=== PATIENT | male | born 1990 | race Caucasian/White ===

== ENCOUNTER 2016-10-03 20:43 | Emergency (ER) | payer OTHER ==
[2016-10-03] MEDS ORDERED: NS 0.9% 1000 ML* 3,000 ML IV ONE (21:57)
[2016-10-03 22:06] LABS: Hematocrit 47 % (42-52); Mean Corpuscular HGB Conc 34 g/dl (31-36); Mean Corpuscular Hemoglobin 31 pg (27-31); Mean Corpuscular Volume 91 fL (80-94); Mean Platelet Volume 10 um3 (7.4-10.4); Red Blood Count 5.23 10^6/ul (4.0-5.4); Red Cell Distribution Width 14 % (10.5-15); White Blood Count 11.7 10^3/ul (3.5-10.8)
[2016-10-03 22:17] LABS: Acetaminophen < 15 mcg/mL; Alcohol < 10 mg/dL (<10)
[2016-10-03 22:19] LABS: ALT 11 U/L (7-52); AST 13 U/L (13-39); Albumin 4.2 g/dL (3.2-5.2); Alkaline Phosphatase 51 U/L (34-104); Anion Gap 9 mmol/L (2-11); BUN/Creatinine Ratio 15.7 (8-20); Blood Urea Nitrogen 16 mg/dL (6-24); C Reactive Protein 1.45 mg/L (< 5.00); CO2 Carbon Dioxide 25 mmol/L (22-32); Calcium 9.1 mg/dL (8.6-10.3); Chloride 105 mmol/L (101-111); Creatine Kinase 93 U/L (10-223); EGFR African American 113.5 (>60); EGFR Non-African American 88.3 (>60); Globulin 2.7 g/dL (2-4); Glucose 99 mg/dL (70-100); Lipase 26 U/L (11.0-82.0); Potassium 3.8 mmol/L (3.5-5.0); Sodium 139 mmol/L (133-145); Total Protein 6.9 g/dL (6.4-8.9)
[2016-10-03 22:21] LABS: Troponin I 0.01 ng/mL (<0.04)
[2016-10-03 22:28] LABS: TSH (Thyroid Stimulating Horm) 0.77 mcIU/mL (0.34-5.60)
--- NOTE | 2016-10-03 22:29 | RAD ---
Indication: LEFT arm and leg weakness. Intermittent LEFT chest pain. Comparison: February 14, 2014 MRI and February 03, 2014 CT. Technique: Noncontrast CT vertex of skull through foramen magnum. Report: The sulci, ventricles, and basal cisterns are normal for age. Lowe matter white matter differentiation is preserved without evidence for edema. No intra or extra axial hemorrhage, mass, or fluid collection detected. Unremarkable orbital contents. Unremarkable calvarium and skull base. Unremarkable scalp. The visualized paranasal sinuses and mastoid air spaces are clear. IMPRESSION: Negative unenhanced head CT.
--- NOTE | 2016-10-03 22:31 | RAD ---
Indication: Intermittent LEFT chest pain. Comparison: April 12, 2016 Technique: Sitting AP chest at 2217 hours Report: Clear lungs and pleural spaces. Negative for pneumothorax. The heart, pulmonary vasculature, and mediastinal contours are unremarkable. Unremarkable osseous structures and soft tissue contours. IMPRESSION: No evidence for acute intrathoracic disease.
[2016-10-03 22:40] LABS: Urine Bilirubin Negative (Negative); Urine Glucose Negative (Negative); Urine Nitrite Negative (Negative)
--- NOTE | 2016-10-03 23:21 | ED ---
I, Oh,Sosolitario, scribed for Gareth Ku MD on 10/03/16 at 2145 . HPI Chest Pain - HPI Summary HPI Summary: This 26 y/o male presents to ED via [facility] ambulance with chief complaint of acute, intermittent CP at 1500 PM today. CP is rated 10/10 at its worst, currently rated 5/10. It is located at left anterior radiating to back, and still persist intermittently. Pt was stopping by [employer] at the time of onset. Pt also reports mild nausea, LUE pain, "feeling really tired and dazed", testicular pain, and LLE numbness/parasthesia after the CP episode. Positive cough. Pt is current smoker. Pt is not currently on any medication. Sitting up and exertion make CP worse. Pt reports increased stressor at work. PMHx includes asthma. FHx is positive for cardiac dz to father. - History of Current Complaint Chief Complaint: EDChestPainROMI Time Seen by Provider: 10/03/16 21:26 Hx Obtained From: Patient Timing: Intermittent Pain Intensity: 8 Pain Scale Used: 0-10 Numeric Chest Pain Location: Left Anterior Chest Pain Radiates: Yes Chest Pain Radiates To:: Back Character: Dull/Aching Aggravating Factor(s): Nothing Alleviating Factor(s): Spontaneous Resolution Associated Signs and Symptoms: Positive: Chest Pain, Weakness - general, Lightheadedness, Cough. Negative: Fever, Chills - Allergy/Home Medications Allergies/Adverse Reactions: Allergies Allergy/AdvReac Type Severity Reaction Status Date / Time No Known Allergies Allergy Verified 04/12/16 12:34 PMH/Surg Hx/FS Hx/Imm Hx Cardiovascular History: Denies: Hx Pacemaker/ICD Respiratory History: Reports: Hx Asthma Sensory History: Denies: Hx Hearing Aid Psychiatric History: Reports: Hx Inpatient Treatment, Hx Community Mental Health Tx, Hx Schizophrenia, Hx of Violent Episodes Against Others, Hx Substance Abuse, Other Psychiatric Issues/Disorders - h/o Autism Spectrum d/o Denies: Hx Eating Disorder, Hx Panic Disorder - Cancer History Hx Chemotherapy: No Hx Radiation Therapy: No Hx Palliative Cancer Treatment: No Infectious Disease History: No Infectious Disease History: Denies: History Other Infectious Disease, Traveled Outside the [place] in Last 30 Days - Family History Known Family History: Positive: Cardiac Disease - positive to father, Hypertension, Diabetes, Other - unspecified CA. - Social History Alcohol Use: Occasionally Hx Substance Use: Yes Substance Use Type: Reports: Excessive Caffeine Substance Use Comment - Amount & Last Used: Alot of Monster drink Hx Tobacco Use: Yes Smoking Status (MU): Heavy Every Day Tobacco Smoker Type: Cigarettes, Cigars Amount Used/How Often: 1 PPD Length of Time of Smoking/Using Tobacco: 8 years Have You Smoked in the Last Year: Yes Review of Systems Negative: Fever Positive: Chest Pain Positive: Cough Positive: Nausea. Negative: Vomiting Positive: other - testicular pain Positive: Weakness - general Negative: Anxious, Depressed All Other Systems Reviewed And Are Negative: Yes Physical Exam Triage Information Reviewed: Yes Vital Signs On Initial Exam: Initial Vitals Temp Pulse Resp BP Pulse Ox 98.9 F 82 15 133/82 95 10/03/16 20:51 10/03/16 20:51 10/03/16 20:51 10/03/16 20:51 10/03/16 20:51 Vital Signs Reviewed: Yes Appearance: Positive: Well-Appearing, No Pain Distress Skin: Positive: Warm, Skin Color Reflects Adequate Perfusion, Dry Eyes: Positive: EOMI, TUSHAR, Other: - rarely opens his eyes Neck: Positive: Supple, Nontender Respiratory/Lung Sounds: Positive: Breath Sounds Present Cardiovascular: Positive: RRR, Pulses are Symmetrical in both Upper and Lower Extremities Abdomen Description: Positive: Nontender, No Organomegaly Bowel Sounds: Positive: Present Musculoskeletal: Positive: Strength/ROM Intact Neurological: Positive: Sensory/Motor Intact, Alert, Oriented to Person Place, Time, Speech Normal. Negative: Focal Deficit @, Slurred Speech - Mchenry Coma Scale Coma Scale Total: 15 Diagnostics - Vital Signs Vital Signs Temp Pulse Resp BP Pulse Ox 10/03/16 21:04 70 13 95 10/03/16 20:51 98.9 F 82 15 133/82 95 - Laboratory Lab Results: Lab Results 10/03/16 10/03/16 10/03/16 Range/Units 21:26 21:26 21:26 WBC 11.7 H (3.5-10.8) 10^3/ul RBC 5.23 (4.0-5.4) 10^6/ul Hgb 16.0 (14.0-18.0) g/dl Hct 47 (42-52) % MCV 91 (80-94) fL MCH 31 (27-31) pg MCHC 34 (31-36) g/dl RDW 14 (10.5-15) % Plt Count 175 (150-450) 10^3/ul MPV 10 (7.4-10.4) um3 Neut % (Auto) 70.6 (38-83) % Lymph % (Auto) 24.2 L (25-47) % Lyman % (Auto) 4.0 (1-9) % Eos % (Auto) 0.9 (0-6) % Baso % (Auto) 0.3 (0-2) % Absolute Neuts (auto) 8.3 H (1.5-7.7) 10^3/ul Absolute Lymphs (auto) 2.8 (1.0-4.8) 10^3/ul Absolute Monos (auto) 0.5 (0-0.8) 10^3/ul Absolute Eos (auto) 0.1 (0-0.6) 10^3/ul Absolute Basos (auto) 0 (0-0.2) 10^3/ul Absolute Nucleated RBC 0 10^3/ul Nucleated RBC % 0 INR (Anticoag Therapy) 1.04 (0.89-1.11) APTT 32.5 (26.0-36.3) seconds D-Dimer, Quantitative < 200 (Less Than 230) ng/mL Sodium 139 (133-145) mmol/L Potassium 3.8 (3.5-5.0) mmol/L Chloride 105 (101-111) mmol/L Carbon Dioxide 25 (22-32) mmol/L Anion Gap 9 (2-11) mmol/L BUN 16 (6-24) mg/dL Creatinine 1.02 (0.67-1.17) mg/dL Est GFR ( Amer) 113.5 (>60) Est GFR (Non-Af Amer) 88.3 (>60) BUN/Creatinine Ratio 15.7 (8-20) Glucose 99 (70-100) mg/dL Lactic Acid (0.5-2.0) mmol/L Calcium 9.1 (8.6-10.3) mg/dL Magnesium 2.0 (1.9-2.7) mg/dL Total Bilirubin 0.70 (0.2-1.0) mg/dL AST 13 (13-39) U/L ALT 11 (7-52) U/L Alkaline Phosphatase 51 (34-104) U/L Total Creatine Kinase 93 (10-223) U/L CK-MB (CK-2) 2.7 (0.6-6.3) ng/mL Troponin I 0.01 (<0.04) ng/mL C-Reactive Protein 1.45 (< 5.00) mg/L Total Protein 6.9 (6.4-8.9) g/dL Albumin 4.2 (3.2-5.2) g/dL Globulin 2.7 (2-4) g/dL Albumin/Globulin Ratio 1.6 (1-3) Lipase 26 (11.0-82.0) U/L TSH 0.77 (0.34-5.60) mcIU/mL Urine Color Urine Appearance Urine pH (5-9) Ur Specific Hoople (1.010-1.030) Urine Protein (Negative) Urine Ketones (Negative) Urine Blood (Negative) Urine Nitrate (Negative) Urine Bilirubin (Negative) Urine Urobilinogen (Negative) Ur Leukocyte Esterase (Negative) Urine Glucose (Negative) Acetaminophen < 15 mcg/mL Serum Alcohol < 10 (<10) mg/dL 10/03/16 10/03/16 Range/Units 21:26 22:20 WBC (3.5-10.8) 10^3/ul RBC (4.0-5.4) 10^6/ul Hgb (14.0-18.0) g/dl Hct (42-52) % MCV (80-94) fL MCH (27-31) pg MCHC (31-36) g/dl RDW (10.5-15) % Plt Count (150-450) 10^3/ul MPV (7.4-10.4) um3 Neut % (Auto) (38-83) % Lymph % (Auto) (25-47) % Lyman % (Auto) (1-9) % Eos % (Auto) (0-6) % Baso % (Auto) (0-2) % Absolute Neuts (auto) (1.5-7.7) 10^3/ul Absolute Lymphs (auto) (1.0-4.8) 10^3/ul Absolute Monos (auto) (0-0.8) 10^3/ul Absolute Eos (auto) (0-0.6) 10^3/ul Absolute Basos (auto) (0-0.2) 10^3/ul Absolute Nucleated RBC 10^3/ul Nucleated RBC % INR (Anticoag Therapy) (0.89-1.11) APTT (26.0-36.3) seconds D-Dimer, Quantitative (Less Than 230) ng/mL Sodium (133-145) mmol/L Potassium (3.5-5.0) mmol/L Chloride (101-111) mmol/L Carbon Dioxide (22-32) mmol/L Anion Gap (2-11) mmol/L BUN (6-24) mg/dL Creatinine (0.67-1.17) mg/dL Est GFR ( Amer) (>60) Est GFR (Non-Af Amer) (>60) BUN/Creatinine Ratio (8-20) Glucose (70-100) mg/dL Lactic Acid 0.9 (0.5-2.0) mmol/L Calcium (8.6-10.3) mg/dL Magnesium (1.9-2.7) mg/dL Total Bilirubin (0.2-1.0) mg/dL AST (13-39) U/L ALT (7-52) U/L Alkaline Phosphatase (34-104) U/L Total Creatine Kinase (10-223) U/L CK-MB (CK-2) (0.6-6.3) ng/mL Troponin I (<0.04) ng/mL C-Reactive Protein (< 5.00) mg/L Total Protein (6.4-8.9) g/dL Albumin (3.2-5.2) g/dL Globulin (2-4) g/dL Albumin/Globulin Ratio (1-3) Lipase (11.0-82.0) U/L TSH (0.34-5.60) mcIU/mL Urine Color Yellow Urine Appearance Clear Urine pH 8.0 (5-9) Ur Specific Hoople 1.010 (1.010-1.030) Urine Protein Negative (Negative) Urine Ketones Negative (Negative) Urine Blood Negative (Negative) Urine Nitrate Negative (Negative) Urine Bilirubin Negative (Negative) Urine Urobilinogen Negative (Negative) Ur Leukocyte Esterase Negative (Negative) Urine Glucose Negative (Negative) Acetaminophen mcg/mL Serum Alcohol (<10) mg/dL Result Diagrams: 10/03/16 21:26 10/03/16 21:26 Lab Statement: Any lab studies that have been ordered have been reviewed, and results considered in the medical decision making process. - Radiology CXR Xray Interpretation: No Acute Changes Radiology Interpretation Completed By: Radiologist - CT Brain CT Interpretation: No Acute Changes CT Interpretation Completed By: Radiologist - EKG 2106 Cardiac Rate: NL - 76 bpm EKG Rhythm: Sinus Rhythm Ectopy: None EKG Interpretation: Early repolarization Re-Evaluation - Re-Evaluation First Eval Re-Evaluation Time: 23:06 Comment: MD in room to update pt on CT brain, CXR, and bloodwork. Plan of care involving discharge and outpatient f/u is discussed, and pt is agreeable. Chest Pain Course/Dx - Course Assessment/Plan: IMROVED IN ED. DISCUSSED RESULTS WITH PATIENT. HE WILL F/U WITH HIS PMD AND RETURN TO ED IF WORSE. DISCHARGE HOME STABLE. - Diagnoses Provider Diagnoses: Chest pain, Paresthesia, Extremity pain Discharge - Discharge Plan Condition: Stable Disposition: HOME Patient Education Materials: Chest Pain (ED) Referrals: No Primary Care Phys,NOPCP [Primary Care Provider] - Additional Instructions: FOLLOW UP WITH YOUR DOCTOR FOR YOUR CHEST AND LEFT ARM AND LEG PAIN AND NUMBNESS. RETURN TO THE EMERGENCY DEPARTMENT FOR ANY WORSENING OF YOUR CONDITION; CHEST PAIN, WEAKNESS, NUMBNESS, YOU FEEL LIKE YOU ARE GOING TO PASS OUT OR QUESTIONS OR CONCERNS. The documentation as recorded by the Rupesh bruno Soohyun accurately reflects the service I personally performed and the decisions made by me, Gareth Ku MD.
[2016-10-03 23:39] VITALS: BP 114/84
== END 2016-10-03 23:39 | disposition home or self-care (01) ==
LOC: ED 20:43
DX: R20.9 Unspecified disturbances of skin sensation (principal); R07.9 Chest pain, unspecified; R53.1 Weakness; R42 Dizziness and giddiness; F17.210 Nicotine dependence, cigarettes, uncomplicated
CPT/HCPCS: 36415; 70450; 71010; 80053; 80320; 80329; 81003; 82550; 82553; 83605; 83690; 83735; 84443; 84484; 85025; 85379; 85610; 85730; 86140; 93005; 99282; G0480

== ENCOUNTER 2016-10-04 15:37 | Emergency (ER) | payer OTHER ==
[2016-10-04 15:43] VITALS: BP 130/75
[2016-10-04] MEDS ORDERED: Ketorolac INJ* 60 MG/2 ML VIAL IM ONE (16:43)
--- NOTE | 2016-10-04 16:54 | ED ---
Back Pain - HPI Summary HPI Summary: Patient presents with persistent left back and left arm pain for weeks that he was seen in this ED for last night. No acute findings were noted at last nights visit. He says his pain persists and he was able to go to work today. He denies known trauma or falls, and has not lifted anything heavy. He slept 12 hours last night and his pain did not awaken him. He denies N/T in the extremity but describes pain in the arm "that is deep inside". No prior neck or back injuries. He is able to move the arm. No WINKLER, fever, neck stiffness or vision changes. No incontinence of urine or stool. Patient was seen in this ED in 2015 for similar issues and has not followed up with a PCP since then. - History of Current Complaint Chief Complaint: EDBackInjuryPain Stated Complaint: BODY ACHES,NAUSEA Hx Obtained From: Patient Onset/Duration: Gradual Onset, Lasting Weeks, Still Present Onset/Duration: Atraumatic, Still Present Timing: Constant Back Pain Location: Is Discrete @ - left mid-back and rib, Radiates To - left arm Severity Initially: Moderate Severity Currently: Severe Pain Intensity: 9 Character: Dull, Aching Aggravating Symptom(s): Nothing Alleviating Symptom(s): Nothing Associated Signs And Symptoms: Negative: Weakness, Numbness, Tingling - Allergies/Home Medications Allergies/Adverse Reactions: Allergies Allergy/AdvReac Type Severity Reaction Status Date / Time Bee Venom Allergy Anaphylatic Verified 10/04/16 15:39 Shock PMH/Surg Hx/FS Hx/Imm Hx Cardiovascular History: Denies: Hx Pacemaker/ICD Respiratory History: Reports: Hx Asthma Sensory History: Denies: Hx Hearing Aid Psychiatric History: Reports: Hx Inpatient Treatment, Hx Community Mental Health Tx, Hx Schizophrenia, Hx of Violent Episodes Against Others, Hx Substance Abuse, Other Psychiatric Issues/Disorders - h/o Autism Spectrum d/o Denies: Hx Eating Disorder, Hx Panic Disorder - Cancer History Hx Chemotherapy: No Hx Radiation Therapy: No Hx Palliative Cancer Treatment: No Infectious Disease History: No Infectious Disease History: Denies: History Other Infectious Disease, Traveled Outside the [place] in Last 30 Days - Family History Known Family History: Positive: Cardiac Disease - positive to father, Hypertension, Diabetes, Other - unspecified [place]. - Social History Occupation: Employed Full-time Lives: With Family Alcohol Use: Occasionally Hx Substance Use: Yes Substance Use Type: Reports: Excessive Caffeine Substance Use Comment - Amount & Last Used: Alot of Monster drink Hx Tobacco Use: Yes Smoking Status (MU): Heavy Every Day Tobacco Smoker Type: Cigarettes, Cigars Amount Used/How Often: 1 PPD Length of Time of Smoking/Using Tobacco: 8 years Have You Smoked in the Last Year: Yes Cessation Counseling: Patient Advised to Stop Review of Systems Negative: Fever, Chills Negative: Chest Pain Negative: Shortness Of Breath Positive: Myalgia. Negative: Decreased ROM, Edema Negative: Bruising Negative: Headache, Weakness, Paresthesia, Numbness All Other Systems Reviewed And Are Negative: Yes Physical Exam Triage Information Reviewed: Yes Vital Signs On Initial Exam: Initial Vitals Temp Pulse Resp BP Pulse Ox 96.8 F 81 16 130/75 97 10/04/16 15:39 10/04/16 15:39 10/04/16 15:39 10/04/16 15:39 10/04/16 15:39 Vital Signs Reviewed: Yes Appearance: Positive: Well-Appearing, Well-Nourished, Pain Distress Skin: Positive: Warm, Skin Color Reflects Adequate Perfusion, Dry, Soft Head/Face: Positive: Normal Head/Face Inspection Eyes: Positive: EOMI, TUSHAR, Conjunctiva Clear ENT: Positive: Hearing grossly normal Neck: Positive: Supple, Nontender, No Lymphadenopathy Respiratory/Lung Sounds: Positive: Clear to Auscultation, Breath Sounds Present Cardiovascular: Positive: RRR Abdomen Description: Positive: Nontender, Soft Bowel Sounds: Positive: Present Musculoskeletal: Positive: Strength/ROM Intact - 5/5 strength bilateral shoulders with abd/IR/ER; bicep flexion, tricep extension 5/5; 5/5 wrist flex/ extension. Negative: Pain @ - Non-tender to palpation over cervical, thoracic and lumbar spine, left scapula, acromion, AC joint and clavicle; non-tender biciptial groove, bicep or elbow; non-tender ribs with compression Neurological: Positive: Sensory/Motor Intact, Alert, Oriented to Person Place, Time, NV Bundle Intact Distally, Normal Gait Psychiatric: Positive: Other - Patient makes poor eye contact and keeps brim of hat over eyes during interaction AVPU Assessment: Alert Diagnostics - Vital Signs Vital Signs Temp Pulse Resp BP Pulse Ox 10/04/16 15:39 96.8 F 81 16 130/75 97 - Laboratory Lab Statement: Any lab studies that have been ordered have been reviewed, and results considered in the medical decision making process. Back Pain Course/Dx - Course Course Of Treatment: I reviewed the studies and notes from the patient previous visits on 04/12/16 and 10/03/16. His symptoms are consistent from these previous visits where all studies were without acute findings. I discussed rest, NSAIDs and muscle relaxers with the patient and he is agreeable to time off and rest. He will call the number provided to obtain a PCP and follow-up with them regarding this chronic issue. - Diagnoses Differential Diagnosis/HQI/PQRI: Positive: Arthritis, Cauda Equina Syndrome, Fracture, Herniated Disc, Neoplasm, Strain, Sprain Provider Diagnoses: Radiculopathy Discharge - Discharge Plan Condition: Stable Disposition: HOME Prescriptions: Cyclobenzaprine TAB* [Flexeril 10 MG TAB*] 10 mg PO TID PRN #15 tab PRN Reason: Pain Patient Education Materials: Cervical Radiculopathy (ED) Forms: *Work Release Referrals: [facility] [place] [facility] [Outside] Additional Instructions: Please call the number provided to establish care with a regular provider to discuss your recurrent issue. Use the muscle relaxer as needed and get extra rest to allow your body to heal. If your symptoms worsen, return to the emergency department.
== END 2016-10-04 17:30 | disposition home or self-care (01) ==
LOC: ED 15:37
DX: M54.10 Radiculopathy, site unspecified (principal); M79.1 Myalgia; F17.210 Nicotine dependence, cigarettes, uncomplicated
CPT/HCPCS: 96372; 99281; J1885

== ENCOUNTER 2016-10-08 22:17 | Emergency (ER) | payer OTHER ==
[2016-10-08] MEDS ORDERED: Ketorolac INJ* 60 MG/2 ML VIAL IM ONE (23:42)
--- NOTE | 2016-10-09 00:31 | ED ---
Frank Lara Billy, scribed for Erwin Wilknis MD on 10/08/16 at 2340 . GI/ HPI - HPI Summary HPI Summary: Patient is a 26 y/o male coming to [facility] for evaluation of constant LLQ abdominal pain for two days. Severity 10/10. He states it feels "like I was kicked in the testicles." Patient reports that his left testicle has retracted upwards. Nothing makes his symptoms better/worse. - History of Current Complaint Chief Complaint: EDAbdPain Time Seen by Provider: 10/08/16 23:38 Stated Complaint: LT TESTICLE PAIN Hx Obtained From: Patient Onset/Duration: Started Days Ago, Still Present Timing: Constant Severity: Moderate Current Severity: Moderate Pain Intensity: 10 Location of Pain: LLQ Associated Signs and Symptoms: Positive: Negative - Allergy/Home Medications Allergies/Adverse Reactions: Allergies Allergy/AdvReac Type Severity Reaction Status Date / Time Bee Venom Allergy Anaphylatic Verified 10/04/16 15:39 Shock PMH/Surg Hx/FS Hx/Imm Hx Cardiovascular History: Denies: Hx Pacemaker/ICD Respiratory History: Reports: Hx Asthma Sensory History: Denies: Hx Hearing Aid Psychiatric History: Reports: Hx Inpatient Treatment, Hx Community Mental Health Tx, Hx Schizophrenia, Hx of Violent Episodes Against Others, Hx Substance Abuse, Other Psychiatric Issues/Disorders - h/o Autism Spectrum d/o Denies: Hx Eating Disorder, Hx Panic Disorder - Cancer History Hx Chemotherapy: No Hx Radiation Therapy: No Hx Palliative Cancer Treatment: No Infectious Disease History: No Infectious Disease History: Denies: History Other Infectious Disease, Traveled Outside the [place] in Last 30 Days - Family History Known Family History: Positive: Cardiac Disease - positive to father, Hypertension, Diabetes, Other - unspecified [place]. - Social History Alcohol Use: Occasionally Hx Substance Use: Yes Substance Use Type: Reports: Excessive Caffeine Substance Use Comment - Amount & Last Used: Alot of Monster drink Hx Tobacco Use: Yes Smoking Status (MU): Heavy Every Day Tobacco Smoker Type: Cigarettes, Cigars Amount Used/How Often: 1 PPD Length of Time of Smoking/Using Tobacco: 8 years Have You Smoked in the Last Year: Yes Review of Systems Negative: Fever Positive: Abdominal Pain All Other Systems Reviewed And Are Negative: Yes Physical Exam Triage Information Reviewed: Yes Vital Signs On Initial Exam: Initial Vitals Temp Pulse Resp BP Pulse Ox 98.3 F 90 18 140/84 97 10/08/16 22:23 10/08/16 22:23 10/08/16 22:23 10/08/16 22:23 10/08/16 22:23 Vital Signs Reviewed: Yes Appearance: Positive: Well-Appearing, No Pain Distress Skin: Positive: Warm Head/Face: Positive: Normal Head/Face Inspection Eyes: Positive: TUSHAR ENT: Positive: Hearing grossly normal Neck: Positive: Supple Respiratory/Lung Sounds: Positive: Clear to Auscultation, Breath Sounds Present Cardiovascular: Positive: RRR Abdomen Description: Positive: Nontender, Soft Male Genital Exam: Positive: normal genitalia. Negative: epididymal tenderness , testicular tenderness (R), testicular tenderness (L) Musculoskeletal: Positive: Strength/ROM Intact Neurological: Positive: Alert, Oriented to Person Place, Time Diagnostics - Vital Signs Vital Signs Temp Pulse Resp BP Pulse Ox 10/08/16 22:23 98.3 F 90 18 140/84 97 - Laboratory Lab Statement: Any lab studies that have been ordered have been reviewed, and results considered in the medical decision making process. - Ultrasound No standard instances Ultrasound Interpretation Completed By: Radiologist - TESTICULAR ULTRASOUND: NORMAL APPEARANCE OF BOTH TESTIS AND BOTH EPIDIDYMIDES WITH NORMAL VASCULAR FLOW SEEN BILATERALLY. GIGU Course/Dx - Diagnoses Provider Diagnoses: Testicular pain Discharge - Discharge Plan Condition: Stable Disposition: HOME Patient Education Materials: Testicle Pain (ED) Referrals: [facility] – [place] [facility] [Outside] The documentation as recorded by the Farnk bruno Billy accurately reflects the service I personally performed and the decisions made by , Erwin Wilkins MD.
[2016-10-09 00:58] VITALS: BP 120/74
--- NOTE | 2016-10-09 21:17 | RAD ---
INDICATION: 5 days of left testicular pain COMPARISON: None TECHNIQUE: Duplex interrogation of the scrotum was performed. FINDINGS: The testicles are normal in size and echogenicity. There is no evidence for testicular mass. The right testis measures 4.2 x 2.3 x 2.6 cm and the left 4.1 x 2.2 x 2.6 cm. There is symmetric flow on Doppler interrogation. Arterial and venous waveforms are identified bilaterally. The epididymides appear normal. The right epididymal head measures 0.9 x 1.3 cm and the left 0.9 x 1.1 cm. There are no hydroceles. There are no varicoceles. IMPRESSION: Normal ultrasound of the scrotum.
== END 2016-10-09 00:58 | disposition home or self-care (01) ==
LOC: ED 22:17
DX: N50.819 Testicular pain, unspecified (principal); R10.32 Left lower quadrant pain
CPT/HCPCS: 76870; 96372; 99282; J1885

== ENCOUNTER 2016-10-17 11:38 | Emergency (ER) | payer OTHER ==
[2016-10-17] MEDS ORDERED: Ondansetron INJ* 2 MG/ML VIAL ONE (12:02)
[2016-10-17] MEDS ORDERED: Ondansetron INJ* 2 MG/ML VIAL IV ONE ×2 (12:02→14:51)
[2016-10-17] MEDS: NS 0.9% 1000 ML* 1,000 ML IV ONE ×2 (12:03→12:56)
[2016-10-17 12:12] LABS: Hematocrit 51 % (42-52); Mean Corpuscular HGB Conc 33 g/dl (31-36); Mean Corpuscular Hemoglobin 31 pg (27-31); Mean Corpuscular Volume 91 fL (80-94); Mean Platelet Volume 9 um3 (7.4-10.4); Red Blood Count 5.59 10^6/ul (4.0-5.4); Red Cell Distribution Width 14 % (10.5-15); White Blood Count 6.7 10^3/ul (3.5-10.8)
[2016-10-17 12:23] LABS: Albumin 4.4 g/dL (3.2-5.2); BUN/Creatinine Ratio 11.7 (8-20); C Reactive Protein 4.47 mg/L (< 5.00); Calcium 9.4 mg/dL (8.6-10.3); EGFR Non-African American 80.1 (>60); Globulin 2.8 g/dL (2-4); Potassium 4.3 mmol/L (3.5-5.0); Total Bilirubin 0.5 mg/dL (0.2-1.0); Total Protein 7.2 g/dL (6.4-8.9)
[2016-10-17] MEDS ORDERED: NS 0.9% 1000 ML* 1,000 ML IV ONE ×2 (13:04→14:51)
[2016-10-17 16:35] VITALS: BP 113/74
--- NOTE | 2016-10-17 18:30 | ED ---
Bunny Lara SooYoung, scribed for Wilfredo Paulson MD on 10/17/16 at 1206 . GI/ HPI - HPI Summary HPI Summary: A 26 y/o M presents to ED with c/o n/v onset two days ago. Associated sx: intermittent episodes of diarrhea. He hasn't eaten much, unable to keep anything down. Pt states his grandmother and father are both sick, and he recently visited them. - History of Current Complaint Chief Complaint: EDNauseaVomitDiarrh Time Seen by Provider: 10/17/16 11:58 Stated Complaint: VOMITING Hx Obtained From: Patient Onset/Duration: Started Days Ago, Still Present Timing: Constant Severity: Moderate Current Severity: Moderate Pain Intensity: 0 Associated Signs and Symptoms: Positive: Nausea, Vomiting, Diarrhea - Allergy/Home Medications Allergies/Adverse Reactions: Allergies Allergy/AdvReac Type Severity Reaction Status Date / Time Bee Venom Allergy Severe Anaphylatic Verified 10/17/16 12:16 Shock PMH/Surg Hx/FS Hx/Imm Hx Previously Healthy: Yes Cardiovascular History: Denies: Hx Pacemaker/ICD Respiratory History: Reports: Hx Asthma Sensory History: Denies: Hx Hearing Aid Psychiatric History: Reports: Hx Inpatient Treatment, Hx Community Mental Health Tx, Hx Schizophrenia, Hx of Violent Episodes Against Others, Hx Substance Abuse, Other Psychiatric Issues/Disorders - h/o Autism Spectrum d/o Denies: Hx Eating Disorder, Hx Panic Disorder - Cancer History Hx Chemotherapy: No Hx Radiation Therapy: No Hx Palliative Cancer Treatment: No Infectious Disease History: No Infectious Disease History: Denies: History Other Infectious Disease, Traveled Outside the [place] in Last 30 Days - Family History Known Family History: Positive: Cardiac Disease - positive to father, Hypertension, Diabetes, Other - unspecified CA. - Social History Occupation: Employed Full-time Lives: With Family Alcohol Use: Occasionally Hx Substance Use: Yes Substance Use Type: Reports: Excessive Caffeine Substance Use Comment - Amount & Last Used: Alot of Monster drink Hx Tobacco Use: Yes Smoking Status (MU): Heavy Every Day Tobacco Smoker Type: Cigarettes, Cigars Amount Used/How Often: 1 PPD Length of Time of Smoking/Using Tobacco: 8 years Have You Smoked in the Last Year: Yes Review of Systems Negative: Fever Positive: Vomiting, Diarrhea, Nausea All Other Systems Reviewed And Are Negative: Yes Physical Exam Triage Information Reviewed: Yes Vital Signs On Initial Exam: Initial Vitals Temp Pulse Resp BP Pulse Ox 98.4 F 65 15 135/81 99 10/17/16 11:39 10/17/16 11:39 10/17/16 11:39 10/17/16 11:39 10/17/16 11:39 Vital Signs Reviewed: Yes Appearance: Positive: No Pain Distress, Ill-Appearing Skin: Positive: Warm, Dry, Other - POS: PALE Head/Face: Positive: Normal Head/Face Inspection Eyes: Positive: Normal ENT: Positive: Normal ENT inspection Neck: Positive: Supple, Nontender Musculoskeletal: Positive: Normal Neurological: Positive: Normal Psychiatric: Positive: Normal, Affect/Mood Appropriate Diagnostics - Vital Signs Vital Signs Temp Pulse Resp BP Pulse Ox 10/17/16 11:51 67 127/78 96 10/17/16 11:49 77 96 10/17/16 11:39 98.4 F 65 15 135/81 99 - Laboratory Lab Results: Lab Results 10/17/16 10/17/16 Range/Units 11:50 11:50 WBC 6.7 (3.5-10.8) 10^3/ul RBC 5.59 H (4.0-5.4) 10^6/ul Hgb 17.0 (14.0-18.0) g/dl Hct 51 (42-52) % MCV 91 (80-94) fL MCH 31 (27-31) pg MCHC 33 (31-36) g/dl RDW 14 (10.5-15) % Plt Count 174 (150-450) 10^3/ul MPV 9 (7.4-10.4) um3 Neut % (Auto) 44.4 (38-83) % Lymph % (Auto) 32.7 (25-47) % Scurry % (Auto) 10.6 H (1-9) % Eos % (Auto) 6.1 H (0-6) % Baso % (Auto) 6.2 H (0-2) % Absolute Neuts (auto) 3.0 (1.5-7.7) 10^3/ul Absolute Lymphs (auto) 2.2 (1.0-4.8) 10^3/ul Absolute Monos (auto) 0.7 (0-0.8) 10^3/ul Absolute Eos (auto) 0.4 (0-0.6) 10^3/ul Absolute Basos (auto) 0.4 H (0-0.2) 10^3/ul Absolute Nucleated RBC 0.01 10^3/ul Nucleated RBC % 0.1 Sodium 137 (133-145) mmol/L Potassium 4.3 (3.5-5.0) mmol/L Chloride 106 (101-111) mmol/L Carbon Dioxide 26 (22-32) mmol/L Anion Gap 5 (2-11) mmol/L BUN 13 (6-24) mg/dL Creatinine 1.11 (0.67-1.17) mg/dL Est GFR ( Amer) 103.0 (>60) Est GFR (Non-Af Amer) 80.1 (>60) BUN/Creatinine Ratio 11.7 (8-20) Glucose 101 H (70-100) mg/dL Calcium 9.4 (8.6-10.3) mg/dL Total Bilirubin 0.50 (0.2-1.0) mg/dL AST 19 (13-39) U/L ALT 16 (7-52) U/L Alkaline Phosphatase 49 (34-104) U/L C-Reactive Protein 4.47 (< 5.00) mg/L Total Protein 7.2 (6.4-8.9) g/dL Albumin 4.4 (3.2-5.2) g/dL Globulin 2.8 (2-4) g/dL Albumin/Globulin Ratio 1.6 (1-3) Result Diagrams: 10/17/16 11:50 10/17/16 11:50 Lab Statement: Any lab studies that have been ordered have been reviewed, and results considered in the medical decision making process. Re-Evaluation - Re-Evaluation 1 Re-Evaluation Time: 14:50 Change: Unchanged Comment: pt reports still feeling nauseated. will order more Zofran and fluids. 2 Re-Evaluation Time: 16:13 Change: Improved Comment: Pt feeling better, will D/C home with zofran. Pt voiced understanding. GIGU Course/Dx - Course Course Of Treatment: Pt is a 26 y/o M presenting with n/v/d. Recent contact with sick family members. Pt given Zofran and fluids. Pt unchanged upon reeval, ordered more Zofran and fluids. Upon 2nd reeval, pt states feeling better. Will D/C home with Zofran. - Diagnoses Provider Diagnoses: Gastroenteritis Discharge - Discharge Plan Condition: Stable Disposition: HOME Prescriptions: Ondansetron ODT TAB* [Zofran Odt TAB*] 4 mg PO Q6H PRN #20 tab.odt PRN Reason: Nausea/Vomiting Patient Education Materials: Ondansetron (By mouth), Gastroenteritis (ED) Forms: *Work Release Referrals: No Primary Care Phys,NOPCP [Primary Care Provider] - [facility] [Outside] The documentation as recorded by the Bunny bruno SooYoung accurately reflects the service I personally performed and the decisions made by me, Wilfredo Paulson MD.
== END 2016-10-17 16:34 | disposition home or self-care (01) ==
LOC: ED 11:38
DX: K52.9 Noninfective gastroenteritis and colitis, unspecified (principal); R11.2 Nausea with vomiting, unspecified; R19.7 Diarrhea, unspecified; F17.210 Nicotine dependence, cigarettes, uncomplicated
CPT/HCPCS: 36415; 80053; 85025; 86140; 96361; 96374; 99283; J2405

== ENCOUNTER 2016-11-02 03:27 | Inpatient (IN) | payer OTHER ==
[2016-11-02 03:48] LABS: Urine Bilirubin Negative (Negative); Urine Glucose Negative (Negative); Urine Nitrite Negative (Negative)
[2016-11-02 04:01] LABS: Benzodiazepine Urine Screen None Detected (None Detect)
[2016-11-02 04:04] LABS: Hematocrit 51 % (42-52); Hemoglobin 17.3 g/dl (14.0-18.0); Mean Corpuscular HGB Conc 34 g/dl (31-36); Mean Corpuscular Hemoglobin 31 pg (27-31); Mean Corpuscular Volume 91 fL (80-94); Mean Platelet Volume 9 um3 (7.4-10.4); Red Blood Count 5.64 10^6/ul (4.0-5.4); Red Cell Distribution Width 14 % (10.5-15); White Blood Count 7.2 10^3/ul (3.5-10.8)
[2016-11-02 04:17] LABS: ALT 17 U/L (7-52); AST 19 U/L (13-39); Albumin 4.6 g/dL (3.2-5.2); Alkaline Phosphatase 49 U/L (34-104); Anion Gap 9 mmol/L (2-11); BUN/Creatinine Ratio 14.2 (8-20); Blood Urea Nitrogen 15 mg/dL (6-24); CO2 Carbon Dioxide 22 mmol/L (22-32); Calcium 9.3 mg/dL (8.6-10.3); Chloride 105 mmol/L (101-111); EGFR African American 108.6 (>60); EGFR Non-African American 84.4 (>60); Glucose 107 mg/dL (70-100); Potassium 4.1 mmol/L (3.5-5.0); Sodium 136 mmol/L (133-145); Total Protein 7.6 g/dL (6.4-8.9)
[2016-11-02 04:23] LABS: Acetaminophen < 15 mcg/mL; Alcohol 205 mg/dL (<10); Salicylate < 2.50 mg/dL (<30)
[2016-11-02] MEDS ORDERED: Haloperidol INJ IV/IM* 5 MG/ML AMP IM ONE (04:25)
[2016-11-02] MEDS ORDERED: diPHENhydraMINE IV* 50 MG/ML 1 ml VIAL (BENADRYL) IM ONE (04:25)
[2016-11-02] MEDS ORDERED: LORazepam INJ* 2 MG/ML 1 ML VIAL IM ONE (04:25)
[2016-11-02 04:34] LABS: TSH (Thyroid Stimulating Horm) 0.85 mcIU/mL (0.34-5.60)
--- NOTE | 2016-11-02 06:17 | ED ---
I, Rupesh,Bandar, scribed for Erwin Wilkins MD on 11/02/16 at 0406 . Psychiatric Complaint - HPI Summary HPI Summary: This 26 y/o male presents to ED as 941 and with possible EtOH intoxication. PMHx includes depression/anxiety, bipolar, and autism spectrum d/o. Pt is currently denying any medical complaints. - History Of Current Complaint Time Seen by Provider: 11/02/16 03:29 Hx Obtained From: Patient Timing: Constant Aggravating Factor(s): Nothing Alleviating Factor(s): Nothing Associated Signs And Symptoms: Positive: Negative Related History: Positive For: Prior Psychiatric Issues - Allergies/Home Medications Allergies/Adverse Reactions: Allergies Allergy/AdvReac Type Severity Reaction Status Date / Time Bee Venom Allergy Severe Anaphylatic Verified 10/17/16 12:16 Shock Home Medications: Home Medications Albuterol HFA INHALER* [Ventolin HFA Inhaler*] 2 puff INH Q6H PRN 11/02/16 [ History Confirmed 11/02/16] PMH/Surg Hx/FS Hx/Imm Hx Cardiovascular History: Denies: Hx Pacemaker/ICD Respiratory History: Reports: Hx Asthma Sensory History: Denies: Hx Hearing Aid Psychiatric History: Reports: Hx Inpatient Treatment, Hx Community Mental Health Tx, Hx Schizophrenia, Hx of Violent Episodes Against Others, Hx Substance Abuse, Other Psychiatric Issues/Disorders - h/o Autism Spectrum d/o Denies: Hx Eating Disorder, Hx Panic Disorder - Cancer History Hx Chemotherapy: No Hx Radiation Therapy: No Hx Palliative Cancer Treatment: No Infectious Disease History: Denies: History Other Infectious Disease, Traveled Outside the [place] in Last 30 Days - Family History Known Family History: Positive: Cardiac Disease - positive to father, Hypertension, Diabetes, Other - unspecified CA. - Social History Alcohol Use: Occasionally Hx Substance Use: Yes Substance Use Type: Reports: Excessive Caffeine Substance Use Comment - Amount & Last Used: Alot of Monster drink Hx Tobacco Use: Yes Smoking Status (MU): Heavy Every Day Tobacco Smoker Type: Cigarettes, Cigars Amount Used/How Often: 1 PPD Length of Time of Smoking/Using Tobacco: 8 years Have You Smoked in the Last Year: Yes Review of Systems Negative: Fever Positive: Other - Possible EtOH All Other Systems Reviewed And Are Negative: Yes Physical Exam Triage Information Reviewed: Yes Vital Signs On Initial Exam: Initial Vitals Temp Pulse Resp BP Pulse Ox 97.2 F 77 16 108/60 98 11/02/16 03:58 11/02/16 03:58 11/02/16 03:58 11/02/16 03:58 11/02/16 03:58 Vital Signs Reviewed: Yes Appearance: Positive: No Pain Distress - uncooperative Skin: Positive: Warm Head/Face: Positive: Normal Head/Face Inspection Eyes: Positive: TUSHAR ENT: Positive: Hearing grossly normal Neck: Positive: Supple Respiratory/Lung Sounds: Positive: Breath Sounds Present Cardiovascular: Positive: RRR Abdomen Description: Positive: Nontender, Soft Bowel Sounds: Positive: Present Musculoskeletal: Positive: Strength/ROM Intact Diagnostics - Vital Signs Vital Signs Temp Pulse Resp BP Pulse Ox 11/02/16 04:55 20 11/02/16 03:58 97.2 F 77 16 108/60 98 - Laboratory Lab Results: Lab Results 11/02/16 Range/Units 03:35 Urine Color Yellow Urine Appearance Clear Urine pH 6.0 (5-9) Ur Specific [place] 1.010 (1.010-1.030) Urine Protein Negative (Negative) Urine Ketones Negative (Negative) Urine Blood Negative (Negative) Urine Nitrate Negative (Negative) Urine Bilirubin Negative (Negative) Urine Urobilinogen Negative (Negative) Ur Leukocyte Esterase Negative (Negative) Urine Glucose Negative (Negative) Result Diagrams: 11/02/16 03:40 11/02/16 03:40 Lab Statement: Any lab studies that have been ordered have been reviewed, and results considered in the medical decision making process. Re-Evaluation - Re-Evaluation First Eval Re-Evaluation Time: 04:26 Comment: Pt is noted to be agitated, currently exchange verbals with security guards. B52 ordered. Course/Dx - Differential Dx/Clinical Impression Provider Diagnosis: Mood disorder - Physician Notifications Instructed by Provider To: Admit As Inpatient Discharge - Discharge Plan Condition: Stable Disposition: ADMITTED TO [facility] Discharge Disposition Comment: Signed out at shift change. Pending MHE and dispo /dx. The documentation as recorded by the Rupesh bruno Soohyun accurately reflects the service I personally performed and the decisions made by me, Erwin Wilkins MD.
[2016-11-02] MEDS ORDERED: Mouth Piece, Nicotine* 1 EACH CARTRIDGE ONE (16:34)
[2016-11-02] MEDS: Nicotine Inhaler* 10 MG AMP INH PRN ×2 (16:35→22:34)
[2016-11-02] MEDS ORDERED: QUEtiapine TAB* 25 MG PO ONE (22:05)
[2016-11-02] MEDS ORDERED: QUEtiapine TAB* 25 MG ONE (22:11)
[2016-11-03] MEDS: Nicotine PATCH 21 MG/24 HR* PATCH TRANSDERM SCH (11:39)
[2016-11-03] MEDS: Ziprasidone * 20 MG CAP (generic Geodon) PO SCH ×2 (11:39→16:43)
[2016-11-03] MEDS: Albuterol HFA INHALER* 8 gm MDI INH PRN ×2 (11:43→15:56)
--- NOTE | 2016-11-03 12:16 | PN ---
Progress Note - Progress Note Note: Medication Reconciliation: Per PT's pharmacy ([facility]) - he should be done with ABX by now - no psychotropics listed
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
[2016-11-03] MEDS: Nicotine Inhaler* 10 MG AMP INH PRN (17:37)
[2016-11-03] MEDS ORDERED: LORazepam TAB(*) 1 MG ONE (18:52)
[2016-11-03] MEDS: Nicotine Patch Removal NOTE FOLLOW UP SCH (21:29)
[2016-11-04] MEDS: Ziprasidone * 20 MG CAP (generic Geodon) PO SCH ×2 (08:18→17:12)
[2016-11-04] MEDS: Albuterol HFA INHALER* 8 gm MDI INH PRN ×3 (08:19→20:31)
[2016-11-04] MEDS: LORazepam TAB(*) 1 MG PO PRN ×3 (08:23→20:29)
[2016-11-04] MEDS: Nicotine Inhaler* 10 MG AMP INH PRN ×5 (08:26→20:32)
[2016-11-04] MEDS: Nicotine PATCH 21 MG/24 HR* PATCH TRANSDERM SCH (09:37)
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
[2016-11-04] MEDS ORDERED: Mouth Piece, Nicotine* 1 EACH CARTRIDGE ONE ×2 (12:47→15:51)
[2016-11-04] MEDS: Nicotine Patch Removal NOTE FOLLOW UP SCH (20:27)
[2016-11-05] MEDS: Ziprasidone * 20 MG CAP (generic Geodon) PO SCH ×2 (08:11→16:28)
[2016-11-05] MEDS: Nicotine Inhaler* 10 MG AMP INH PRN ×3 (08:12→19:52)
[2016-11-05] MEDS: Nicotine PATCH 21 MG/24 HR* PATCH TRANSDERM SCH (08:12)
[2016-11-05] MEDS: Albuterol HFA INHALER* 8 gm MDI INH PRN ×5 (08:14→23:04)
[2016-11-05] MEDS: LORazepam TAB(*) 1 MG PO PRN ×3 (08:28→19:51)
[2016-11-05] MEDS ORDERED: Mouth Piece, Nicotine* 1 EACH CARTRIDGE ONE (14:32)
[2016-11-05] MEDS: Nicotine Patch Removal NOTE FOLLOW UP SCH (19:53)
[2016-11-06] MEDS ORDERED: Mouth Piece, Nicotine* 1 EACH CARTRIDGE ONE
[2016-11-06] MEDS ORDERED: Acetaminophen TAB* 325 MG PO PRN (00:55)
[2016-11-06] MEDS: LORazepam TAB(*) 1 MG PO PRN ×3 (01:00→15:19)
[2016-11-06] MEDS: Nicotine Inhaler* 10 MG AMP INH PRN ×3 (01:00→16:21)
[2016-11-06] MEDS ORDERED: Acetaminophen TAB* 325 MG ONE (03:04)
[2016-11-06] MEDS: Albuterol HFA INHALER* 8 gm MDI INH PRN ×2 (07:00→16:22)
[2016-11-06] MEDS: Ziprasidone * 20 MG CAP (generic Geodon) PO SCH ×2 (07:47→16:21)
[2016-11-06] MEDS: Nicotine PATCH 21 MG/24 HR* PATCH TRANSDERM SCH (08:21)
[2016-11-06] MEDS ORDERED: chlorproMAZINE TAB* 25 MG ONE (13:34)
[2016-11-06] MEDS ORDERED: chlorproMAZINE TAB* 25 MG PO PRN (16:28)
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
[2016-11-06] MEDS: Nicotine Patch Removal NOTE FOLLOW UP SCH (20:56)
[2016-11-07] MEDS: LORazepam TAB(*) 1 MG PO PRN ×3 (02:17→14:12)
[2016-11-07] MEDS: Albuterol HFA INHALER* 8 gm MDI INH PRN (06:44)
[2016-11-07] MEDS: Nicotine Inhaler* 10 MG AMP INH PRN (06:45)
[2016-11-07] MEDS ORDERED: Mouth Piece, Nicotine* 1 EACH CARTRIDGE ONE (07:32)
[2016-11-07] MEDS: Nicotine PATCH 21 MG/24 HR* PATCH TRANSDERM SCH (07:33)
[2016-11-07] MEDS: Ziprasidone * 20 MG CAP (generic Geodon) PO SCH (07:33)
[2016-11-07 07:55] VITALS: BP 131/79
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
== END 2016-11-07 15:35 | disposition home or self-care (01) | DRG 775 ==
LOC: ED 03:27 → BSU 14:04
PROVIDERS: ADMIT Psychiatry & Neurology Psychiatry; ATTEND Psychiatry & Neurology Psychiatry
DX: F19.94 Other psychoactive substance use, unspecified with psychoactive substance-induced mood disorder (principal); F10.129 Alcohol abuse with intoxication, unspecified; F23 Brief psychotic disorder; F32.9 Major depressive disorder, single episode, unspecified; F84.0 Autistic disorder; Y90.9 Presence of alcohol in blood, level not specified; J45.909 Unspecified asthma, uncomplicated; Z81.8 Family history of other mental and behavioral disorders; Z81.1 Family history of alcohol abuse and dependence; Z91.030 Bee allergy status; Z82.49 Family history of ischemic heart disease and other diseases of the circulatory system; Z83.3 Family history of diabetes mellitus; Z80.9 Family history of malignant neoplasm, unspecified; F17.210 Nicotine dependence, cigarettes, uncomplicated
CPT/HCPCS: 36415; 80053; 80307; 80320; 80329; 81003; 84443; 85025; 99222; 99231; 99238; 99406; A9270-GY; G0480; J1200; J1630; J2060

== ENCOUNTER 2016-12-30 21:20 | Emergency (ER) | payer OTHER ==
[2016-12-31] MEDS ORDERED: Penicillin VK TAB* 250 MG PO ONE (01:19)
[2016-12-31] MEDS ORDERED: HYDROcodone/ACETAMIN 5-325 MG* 1 TAB PO ONE (01:26)
[2016-12-31] MEDS ORDERED: Ibuprofen TAB* 600 MG PO ONE (01:27)
[2016-12-31 06:14] VITALS: BP 150/82
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
== END 2016-12-31 01:44 | disposition home or self-care (01) ==
LOC: ED 21:20
DX: K04.7 Periapical abscess without sinus (principal); F17.210 Nicotine dependence, cigarettes, uncomplicated; J45.909 Unspecified asthma, uncomplicated
CPT/HCPCS: 99282; A9270-GY

== ENCOUNTER 2017-04-20 15:12 | Emergency (ER) | payer SELFPAY ==
[2017-04-20 15:19] VITALS: BP 134/86
[2017-04-20] MEDS ORDERED: Ibuprofen TAB* 600 MG PO ONE (18:42)
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
== END 2017-04-20 18:55 | disposition home or self-care (01) ==
LOC: ED 15:12
DX: S61.011A Laceration without foreign body of right thumb without damage to nail, initial encounter (principal); S63.601A Unspecified sprain of right thumb, initial encounter; W22.8XXA Striking against or struck by other objects, initial encounter; Y93.89 Activity, other specified; Y92.9 Unspecified place or not applicable; F20.9 Schizophrenia, unspecified; F17.210 Nicotine dependence, cigarettes, uncomplicated
CPT/HCPCS: 29130; 99281; A9270-GY

== ENCOUNTER 2017-04-22 10:17 | Emergency (ER) | payer SELFPAY ==
[2017-04-22] MEDS ORDERED: Ibuprofen TAB* 400 MG PO ONE (12:03)
[2017-04-22] MEDS ORDERED: Cyclobenzaprine TAB* 10 MG PO ONE (12:04)
--- NOTE | 2017-04-22 12:58 | RAD ---
HISTORY: Neck pain COMPARISONS: None TECHNIQUE: Multiple contiguous axial CT scans were obtained of the cervical spine without intravenous contrast, with coronal and sagittal multiplanar reformations. FINDINGS: BRAIN: The visualized brain is unremarkable CENTRAL CANAL: Evaluation of the central canal is limited on CT technique, however there is no obvious canalicular mass or epidural hemorrhage. ALIGNMENT: There is straightening of the normal cervical lordosis. VERTEBRAL BODIES: The odontoid process is intact. The atlantoaxial intervals are symmetric. The vertebral bodies are normal in attenuation, without fracture. JOINTS: There is no subluxation or dislocation MUSCULATURE: Unremarkable INTERVERTEBRAL DISCS: The intervertebral disc spaces are relatively preserved in height. AXIAL IMAGES: On axial images, there is a right-sided disc protrusion at C5-C6 measuring 0.4 cm in size. There is no osseous neural foraminal narrowing or central canal stenosis. SOFT TISSUES: The visualized soft tissues of the neck are unremarkable. The prevertebral fat stripe is preserved. OTHER: None. IMPRESSION: STRAIGHTENING THE CERVICAL LORDOSIS. THERE IS A RIGHT-SIDED DISC PROTRUSION AT C5-C6. NO OSSEOUS NEURAL FORAMINAL AREA OR CENTRAL CANAL STENOSIS.
[2017-04-22] MEDS ORDERED: Dexamethasone TAB* 4 MG PO ONE (13:02)
[2017-04-22] MEDS ORDERED: Mouth Piece, Nicotine* 1 EACH CARTRIDGE INH PRN (13:24)
[2017-04-22] MEDS ORDERED: Nicotine Inhaler* 10 MG AMP INH ONE (13:24)
[2017-04-22] MEDS ORDERED: Nicotine Inhaler* 10 MG AMP ONE (13:26)
[2017-04-22] MEDS ORDERED: Mouth Piece, Nicotine* 1 EACH CARTRIDGE ONE (13:26)
--- NOTE | 2017-04-22 13:57 | RAD ---
HISTORY: Right shoulder pain COMPARISONS: February 06, 2011 VIEWS: 5, Frontal internal rotation, external rotation, outlet, and axillary views of the right shoulder FINDINGS: BONE DENSITY: Normal. BONES: There is no displaced fracture. JOINTS: There is no arthropathy. ALIGNMENT: There is no dislocation. SOFT TISSUES: Unremarkable. OTHER FINDINGS: None. IMPRESSION: NO ACUTE OSSEOUS INJURY. IF SYMPTOMS PERSIST, RECOMMEND REPEAT IMAGING.
[2017-04-22] MEDS ORDERED: diPHENhydraMINE IV* 50 MG/ML 1 ml VIAL (BENADRYL) IM ONE (14:17)
[2017-04-22 15:54] VITALS: BP 116/73
--- NOTE | 2017-04-22 20:03 | ED ---
Bong Lara Angela, scribed for Arthur Pack MD on 04/22/17 at 1153 . Neck Pain - HPI Summary HPI Summary: This pt is a 27 y/o male presenting to [facility] c/o right sided neck pain since 299 today. He denies injuries or trauma to his neck. Pt states he "feels like I got hit by a hammer." Pt notes his pain radiates down his right arm. His pain is aggravated with movement of neck. Pt denies fever, chills, weakness or numbness in UE or LE. 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 Pt notes that 2 days ago he came to the ED for jamming his right thumb against the radiator fan. He denies falling. Pt denies any PMHx. Pt smokes marijuana. - History of Current Complaint Chief Complaint: EDNeckComplaint Stated Complaint: RT SIDE NECK/SHOULDER PAIN Time Seen by Provider: 04/22/17 11:49 Hx Obtained From: Patient Onset/Duration Of Injury/Symptoms: Hours Timing: Lasting Hours Onset/Duration: Started hours ago Pain Intensity: 5 Location: Radiates To: - right arm Aggravating Factors: Movement - neck movement Associated Signs & Symptoms: Negative: Fever, Weakness, Paresthesia - Allergies/Home Medications Allergies/Adverse Reactions: Allergies Allergy/AdvReac Type Severity Reaction Status Date / Time Bee Venom Allergy Severe Anaphylatic Verified 10/17/16 12:16 Shock PMH/Surg Hx/FS Hx/Imm Hx Endocrine/Hematology History: Denies: Hx Diabetes Cardiovascular History: Denies: Hx Hypertension, Hx Pacemaker/ICD Respiratory History: Reports: Hx Asthma Sensory History: Denies: Hx Contacts or Glasses, Hx Hearing Aid Opthamlomology History: Denies: Hx Contacts or Glasses Psychiatric History: Reports: Hx Inpatient Treatment, Hx Community Mental Health Tx, Hx Schizophrenia, Hx of Violent Episodes Against Others, Hx Substance Abuse, Other Psychiatric Issues/Disorders - h/o Autism Spectrum d/o Denies: Hx Eating Disorder, Hx Panic Disorder - Cancer History Hx Chemotherapy: No Hx Radiation Therapy: No Hx Palliative Cancer Treatment: No - Surgical History Surgery Procedure, Year, and Place: n/a - Immunization History Date of Tetanus Vaccine: UTD Infectious Disease History: Yes Infectious Disease History: Denies: History Other Infectious Disease, Traveled Outside the [place] in Last 30 Days - Family History Known Family History: Positive: Cardiac Disease - positive to father, Hypertension, Diabetes, Other - unspecified [place]. - Social History Alcohol Use: Occasionally Hx Substance Use: Yes Substance Use Type: Reports: Marijuana Substance Use Comment - Amount & Last Used: Alot of Monster drink Hx Tobacco Use: Yes Smoking Status (MU): Heavy Every Day Tobacco Smoker Type: Cigarettes, Cigars Amount Used/How Often: 1 PPD Length of Time of Smoking/Using Tobacco: 8 years Have You Smoked in the Last Year: Yes Review of Systems Negative: Fever, Chills Positive: Other - right sided neck pain, right arm pain Negative: Headache, Weakness, Paresthesia, Numbness All Other Systems Reviewed And Are Negative: Yes Physical Exam Triage Information Reviewed: Yes Vital Signs On Initial Exam: Initial Vitals Temp Pulse Resp BP Pulse Ox 97.6 F 62 18 115/63 98 04/22/17 10:26 04/22/17 10:26 04/22/17 10:26 04/22/17 10:26 04/22/17 10:26 Vital Signs Reviewed: Yes Appearance: Positive: Well-Appearing, No Pain Distress Skin: Positive: Warm, Skin Color Reflects Adequate Perfusion Head/Face: Positive: Normal Head/Face Inspection Eyes: Positive: EOMI, TUSHAR ENT: Positive: Normal ENT inspection Neck: Positive: Nontender, Other: - he has spasms of the right paraspinal muscles, and right trapezius muscle with limited ROM looking to the right due to spasm and pain.. Negative: Nuchal Rigidity Respiratory/Lung Sounds: Positive: Clear to Auscultation, Breath Sounds Present Cardiovascular: Positive: RRR. Negative: Murmur Abdomen Description: Positive: Nontender Musculoskeletal: Positive: Strength/ROM Intact, Other - he is rather stiff in the right shoulder biceps muscle but not weak. Neurological: Positive: Sensory/Motor Intact, Alert, Oriented to Person Place, Time, CN Intact II-III, Reflexes Intact Psychiatric: Positive: Normal - [place] Coma Scale Best Eye Response: 4 - Spontaneous Best Motor Response: 6 - Obeys Commands Coma Scale Total: 15 Diagnostics - Vital Signs Vital Signs Temp Pulse Resp BP Pulse Ox 04/22/17 10:26 97.6 F 62 18 115/63 98 - Laboratory Lab Statement: Any lab studies that have been ordered have been reviewed, and results considered in the medical decision making process. - Radiology Right shoulder XR Xray Interpretation: No Acute Changes - IMPRESSION: No acute osseous injury. If symptoms persist, recommend repeat imaging. ED physician has reviewed this radiology report and agrees. Radiology Interpretation Completed By: Radiologist - CT Cervical spine CT CT Interpretation: Positive (See Comments) - IMPRESSION: Straightening the cervical lordosis. There is a right-sided disc protrusion at C5-C6. No osseous neural foraminal area or central canal stenosis. ED physician has reviewed this radiology report and agrees. CT Interpretation Completed By: Radiologist Re-Evaluation - Re-Evaluation First Eval Re-Evaluation Time: 15:15 Change: Improved Comment: 27 yr old with tightness and stiffness in neck muscles and right shoulder arm. He was given meds, but then also given benadryl IM and after the benadryl he has dramatic improvement in his stiffness, and tightness. He probably has a component of dystonic reaction from his psych meds. Neck Course/Dx - Course Assessment/Plan: Pt is a 27 y/o male who presents with atraumatic right sided neck pain since 0300 today. Pt notes his pain radiates to his right arm. Right shoulder XR and cervical spine CT were obtained. In the ED course, pt was given decadron, flexeril, and motrin. C-spine CT shows straightening the cervical lordosis. There is a right-sided disc protrusion at C5-C6. No osseous neural foraminal area or central canal stenosis. Right shoulder XR is negative. Pt will be discharged. Case discussed with Robert Akers, case therapist from [facility]. Will put him on benadryl 25 mg three times a day, and he will meet next april to have his meds reviewed and see psychiatry. - Diagnoses Provider Diagnoses: Dystonic drug reaction, Herniated cervical intervertebral disc Discharge - Discharge Plan Condition: Good Disposition: HOME Prescriptions: diPHENhydraMINE PO* [Benadryl PO 25 MG TAB*] 25 mg PO TID PRN #20 tab PRN Reason: Spasms Patient Education Materials: Spasmodic Torticollis (ED), Muscle Spasm (ED) Referrals: Non Staff,Doctor [Primary Care Provider] - Additional Instructions: [facility] Website Directions [facility] in [place], [place] Address: [address] [place] [id number] Please See Robert Akers on April 27 at 1pm on the third floor at [facility]. The documentation as recorded by the Bong bruno Angela accurately reflects the service I personally performed and the decisions made by me, Arthur Pack MD.
== END 2017-04-22 15:55 | disposition home or self-care (01) ==
LOC: ED 10:17
DX: M50.222 Other cervical disc displacement at C5-C6 level (principal); G24.09 Other drug induced dystonia; F17.210 Nicotine dependence, cigarettes, uncomplicated
CPT/HCPCS: 36415; 72125; 86703; 96372; 99282; A9270-GY; J1200; J8540

== ENCOUNTER 2017-05-31 13:36 | Emergency (ER) | payer SELFPAY ==
[2017-05-31] MEDS ORDERED: Albuterol/Ipratropium NEB.SOL* Albuterol 2.5 MG/Ipratropium 0.5 MG 3 ML INH ONE (16:33)
--- NOTE | 2017-05-31 16:44 | ED ---
Influenza-Like Illness - HPI Summary HPI Summary: 27 male presents to ED with complaints of sore throat, chest congestions, productive cough and myalgias that began yesterday. Production of cough is yellow and mucus in color. Admits to nasal congestion as well. Patient has not taken any medication. States throat is sore upon swallowing everytime. Also states he is feeling very fatigued. Patient denies any other complaints at this time. Admits to have trouble breathing only due to congestion. Denies chest pain and fever. Patient denies nausea, vomiting. Never previously diagnosed with mono. Did not have flu shot this year. Denies ear ache and headache. PMHx significant for asthma. - History of Current Complaint Chief Complaint: EDFluSymptoms Time Seen by Provider: 05/31/17 15:45 Hx Obtained From: Patient Onset/Duration: Sudden Onset, Lasting Days - 1, Still Present, Worse Since Associated Signs & Symptoms: Myalgia, Cough, Sore Throat, Nasal Congestion - Allergy/Home Medications Allergies/Adverse Reactions: Allergies Allergy/AdvReac Type Severity Reaction Status Date / Time Bee Venom Allergy Severe Anaphylatic Verified 10/17/16 12:16 Shock PMH/Surg Hx/FS Hx/Imm Hx Endocrine/Hematology History: Denies: Hx Diabetes Cardiovascular History: Denies: Hx Hypertension, Hx Pacemaker/ICD Respiratory History: Reports: Hx Asthma Sensory History: Denies: Hx Contacts or Glasses, Hx Hearing Aid Opthamlomology History: Denies: Hx Contacts or Glasses Psychiatric History: Reports: Hx Inpatient Treatment, Hx Community Mental Health Tx, Hx Schizophrenia, Hx of Violent Episodes Against Others, Hx Substance Abuse, Other Psychiatric Issues/Disorders - h/o Autism Spectrum d/o Denies: Hx Eating Disorder, Hx Panic Disorder - Cancer History Hx Chemotherapy: No Hx Radiation Therapy: No Hx Palliative Cancer Treatment: No - Surgical History Surgery Procedure, Year, and Place: n/a - Immunization History Date of Tetanus Vaccine: UTD Infectious Disease History: No Infectious Disease History: Denies: History Other Infectious Disease, Traveled Outside the US in Last 30 Days - Family History Known Family History: Positive: Cardiac Disease - positive to father, Hypertension, Diabetes, Other - unspecified [place]. - Social History Alcohol Use: Occasionally Hx Substance Use: Yes Substance Use Type: Reports: Marijuana Substance Use Comment - Amount & Last Used: Alot of Monster drink Hx Tobacco Use: Yes Smoking Status (MU): Heavy Every Day Tobacco Smoker Type: Cigarettes, Cigars Amount Used/How Often: 1 PPD Length of Time of Smoking/Using Tobacco: 8 years Have You Smoked in the Last Year: Yes Review of Systems Positive: Fatigue Eyes: Negative Positive: Sore Throat, Nasal Discharge Cardiovascular: Negative Positive: Cough Gastrointestinal: Negative Neurological: Negative All Other Systems Reviewed And Are Negative: Yes Physical Exam Triage Information Reviewed: Yes Vital Signs On Initial Exam: Initial Vitals Temp Pulse Resp BP Pulse Ox 98.8 F 88 18 110/74 98 05/31/17 14:01 05/31/17 14:01 05/31/17 14:01 05/31/17 14:01 05/31/17 14:01 Vital Signs Reviewed: Yes Appearance: Positive: No Pain Distress, Well-Nourished, Ill-Appearing Skin: Positive: Warm, Skin Color Reflects Adequate Perfusion, Dry. Negative: Cold, Cyanosis @, Pale, Erythema @ Head/Face: Positive: Normal Head/Face Inspection Eyes: Positive: Conjunctiva Clear ENT: Positive: Hearing grossly normal, Pharyngeal erythema, Nasal congestion, Nasal drainage, TMs normal, TM red - left. Negative: Tonsillar swelling, Tonsillar exudate, Trismus, Muffled voice Dental: Positive: Cervical Lymphadenopathy Neck: Positive: Supple, Nontender Respiratory/Lung Sounds: Positive: Clear to Auscultation, Breath Sounds Present , Wheezes - diffuse. Negative: Rales, Rhonchi Cardiovascular: Positive: Normal, RRR, Pulses are Symmetrical in both Upper and Lower Extremities. Negative: Murmur, Rub Abdomen Description: Positive: Nontender, Soft Bowel Sounds: Positive: Present Musculoskeletal: Positive: Normal, Strength/ROM Intact Neurological: Positive: Normal, Sensory/Motor Intact, Alert, Oriented to Person Place, Time, Normal Gait Diagnostics - Vital Signs Vital Signs Temp Pulse Resp BP Pulse Ox 05/31/17 14:01 98.8 F 88 18 110/74 98 - Laboratory Lab Statement: Any lab studies that have been ordered have been reviewed, and results considered in the medical decision making process. - Radiology chest Xray Interpretation: No Acute Changes - Unchanged mild patchy prominence of interstitial markings. New or recurrent bronchopneumonia is not excluded. Radiology Interpretation Completed By: Radiologist Re-Evaluation - Re-Evaluation First Eval Re-Evaluation Time: 17:20 Change: Improved - had relief after duoneb, wheezes improved Flu Symptom Course/Dx - Course Course Of Treatment: given duoneb. chest xray obtained to rule out pneumonia, normal vitals. xray negative. rapid strep and flu obtained and negative. monospot obtained and neagtive. appears to be suffering from URI. Will treat with inhaler, mucinex, flonase and doxycycline due to possible bronchopneumonia and increased risk due to heavy tobacco use and production of mucus. increase fluid intake, rest. aware of worsening signs and symptoms. follow up. no concern for other etiology at this time. - Diagnoses Differential Diagnosis/HQI/PQRI: Positive: Bronchitis, Influenza, Upper Respiratory Infection, Other - strep throat Provider Diagnoses: Upper respiratory infection Discharge - Discharge Plan Condition: Stable Disposition: HOME Prescriptions: Albuterol HFA INHALER* [Ventolin HFA Inhaler*] 1 - 2 puff INH Q4H PRN #1 mdi PRN Reason: Sob/Wheezing DOXYcycline CAP(*) [DOXYcycline 100MG CAP(*)] 100 mg PO BID #14 cap Fluticasone NASAL SPRAY 50MCG* [Flonase NASAL SPRAY 50MCG*] 2 spray BOTH NARES DAILY #1 btl Patient Education Materials: Upper Respiratory Infection (ED) Forms: *Work Release Referrals: Non Staff,Doctor [Primary Care Provider] - Additional Instructions: Take prescribed medication as directed. Increase fluid intake. Get plenty of rest. Hot showers and humidifier if available at bedtime. Extra pillow at night. Refrain from strenuous physical activity. Vicks on chest, Mucinex-D daily, sold over the counter. Chloraseptic spray for sore throat, gargle with salt water. Cover mouth and wash hands frequently. Follow up with PCP. Any new or worsening symptoms please seek medical attention promptly.
--- NOTE | 2017-05-31 17:19 | RAD ---
INDICATION: Flulike symptoms since yesterday. Body aches, sore throat. COMPARISON: October 03, 2016 TECHNIQUE: Dual energy PA and routine lateral views of the chest were obtained. REPORT: Mild patchy prominence of the interstitial markings similar to the prior exam. No alveolar consolidation, focal pulmonary lesion, pleural effusion, pneumothorax. The heart, pulmonary vasculature, and mediastinal contours are unremarkable. IMPRESSION: Unchanged mild patchy prominence of interstitial markings. New or recurrent bronchopneumonia is not excluded.
[2017-05-31 17:51] LABS: Manual Entry Verification MD; Mono Internal Control QC Line Present
[2017-05-31 18:02] VITALS: BP 120/64
== END 2017-05-31 18:02 | disposition home or self-care (01) ==
LOC: ED 13:36
DX: J06.9 Acute upper respiratory infection, unspecified (principal); J02.9 Acute pharyngitis, unspecified; R09.89 Other specified symptoms and signs involving the circulatory and respiratory systems; R05 Cough; F17.210 Nicotine dependence, cigarettes, uncomplicated
CPT/HCPCS: 36415; 71020; 86308; 87502; 87651; 94640; 99282; A9270-GY

== ENCOUNTER → 2018-01-19 10:40 | Emergency (ER) | payer SELFPAY ==
[~2018-01-19 10:40] MED LIST: Ketorolac INJ* 30 MG/ML 1 ML VIAL IV PUSH ONE; NS 0.9% 1000 ML* 1,000 ML IV ONE
--- NOTE | 2018-01-19 12:14 | RAD ---
INDICATION: Chest pain COMPARISON: May 31, 2017 TECHNIQUE: PA and lateral dual-energy views were obtained. FINDINGS: Bones/Soft Tissues: There are no acute bony findings. Cardiomediastinal: The cardiomediastinal silhouette is normal. Lungs: There are no infiltrates. Pleura: There are no pleural effusions. Other: None IMPRESSION: NO ACTIVE DISEASE.
[2018-01-19 12:40] LABS: ABS Basophils 0 10^3/ul (0-0.2); ABS Eosinophils 0.3 10^3/ul (0-0.6); ABS Lymphocytes 2.6 10^3/ul (1.0-4.8); ABS Monocytes 0.6 10^3/ul (0-0.8); ABS Neutrophils 2.7 10^3/ul (1.5-7.7); ABS Nucleated RBC 0 10^3/ul; Eosinophil % 4.3 % (0-6); Hematocrit 46 % (42-52); Hemoglobin 15.7 g/dl (14.0-18.0); Lymphocyte % 42.4 % (25-47); Mean Corpuscular HGB Conc 35 g/dl (31-36); Mean Corpuscular Hemoglobin 31 pg (27-31); Mean Corpuscular Volume 89 fL (80-94); Mean Platelet Volume 9.4 um3 (7.4-10.4); Nucleated Red Blood Cells % 0.1; Platelet Count 162 10^3/ul (150-450); Red Blood Count 5.12 10^6/ul (4.00-5.40); Red Cell Distribution Width 14 % (10.5-15); White Blood Count 6.2 10^3/ul (3.5-10.8)
--- NOTE | 2018-01-19 12:49 | ED ---
Influenza-Like Illness - HPI Summary HPI Summary: Patient is a 28-year-old male presenting with a 3 day history of low back pain, diffuse myalgias, weakness and fatigue. States he has been working outside in the heat, but continues to drink fluids. He was diagnosed with a viral illness/ gastroenteritis at [facility] days ago. He states symptoms have not improved. Denies any fevers, sweats, chills. Endorses diffuse body aches, denies any cough, Congestion, nasal drainage. Denies any vomiting. Denies diahrrea or constipation. On arrival he is c/o chest pain which is about 2/10 compared to my 10 back pain. Denies known injury or trauma. No previous history of back pain. - History of Current Complaint Chief Complaint: EDGeneral Time Seen by Provider: 01/19/18 11:08 Hx Obtained From: Patient Onset/Duration: Gradual Onset Severity: Moderate Associated Signs & Symptoms: Fever, F/C - Risk Factors Influenza Risk Factors: Negative - Allergy/Home Medications Allergies/Adverse Reactions: Allergies Allergy/AdvReac Type Severity Reaction Status Date / Time bee venom protein (honey bee) Allergy Anaphylatic Verified 01/19/18 10:44 Shock Home Medications: Home Medications FLUoxetine CAP* [PROzac CAP*] 60 mg PO DAILY 01/19/18 [History Confirmed ] busPIRone TAB* [Buspar *] 30 mg PO DAILY 01/19/18 [History Confirmed 01/19/18] PMH/Surg Hx/FS Hx/Imm Hx Previously Healthy: Yes Endocrine/Hematology History: Denies: Hx Diabetes Cardiovascular History: Denies: Hx Hypertension, Hx Pacemaker/ICD Respiratory History: Reports: Hx Asthma Sensory History: Denies: Hx Contacts or Glasses, Hx Hearing Aid Opthamlomology History: Denies: Hx Contacts or Glasses Psychiatric History: Reports: Hx Inpatient Treatment, Hx Community Mental Health Tx, Hx Schizophrenia, Hx of Violent Episodes Against Others, Hx Substance Abuse, Other Psychiatric Issues/Disorders - h/o Autism Spectrum d/o Denies: Hx Eating Disorder, Hx Panic Disorder - Cancer History Hx Chemotherapy: No Hx Radiation Therapy: No Hx Palliative Cancer Treatment: No - Surgical History Surgery Procedure, Year, and Place: n/a - Immunization History Date of Tetanus Vaccine: UTD Immunizations Up to Date: Unable to Obtain/Confirm Infectious Disease History: No Infectious Disease History: Denies: History Other Infectious Disease, Traveled Outside the [place] in Last 30 Days - Family History Known Family History: Positive: Cardiac Disease - positive to father, Hypertension, Diabetes, Other - unspecified [place]. - Social History Alcohol Use: Occasionally Hx Substance Use: Yes Substance Use Type: Reports: Marijuana Substance Use Comment - Amount & Last Used: Alot of Monster drink Hx Tobacco Use: Yes Smoking Status (MU): Heavy Every Day Tobacco Smoker Type: Cigarettes, Cigars Amount Used/How Often: 1 PPD Length of Time of Smoking/Using Tobacco: 8 years Have You Smoked in the Last Year: Yes Review of Systems Constitutional: Negative Positive: Fatigue, Skin Diaphoresis. Negative: Fever, Chills Negative: Photophobia, Blurred Vision Negative: Sore Throat, Ear Ache, Nasal Discharge Positive: Chest Pain. Negative: Palpitations Negative: Shortness Of Breath, Cough Genitourinary: Negative Positive: no symptoms reported, see HPI Positive: Arthralgia - low back pain Skin: Negative Neurological: Negative All Other Systems Reviewed And Are Negative: Yes Physical Exam Triage Information Reviewed: Yes Vital Signs On Initial Exam: Initial Vitals Temp Pulse Resp BP Pulse Ox 98.1 F 61 17 138/88 97 01/19/18 10:42 01/19/18 10:42 01/19/18 10:42 01/19/18 10:42 01/19/18 10:42 Appearance: Positive: Ill-Appearing Skin: Positive: Warm, Skin Color Reflects Adequate Perfusion Head/Face: Positive: Normal Head/Face Inspection Eyes: Positive: EOMI, TUSHAR, Conjunctiva Clear Neck: Positive: Supple, No Lymphadenopathy Respiratory/Lung Sounds: Positive: Clear to Auscultation, Breath Sounds Present Cardiovascular: Positive: RRR, Pulses are Symmetrical in both Upper and Lower Extremities Musculoskeletal: Positive: Normal, Strength/ROM Intact Neurological: Positive: Speech Normal Psychiatric: Positive: Normal, Affect/Mood Appropriate Diagnostics - Vital Signs Vital Signs Temp Pulse Resp BP Pulse Ox 01/19/18 10:42 98.1 F 61 17 138/88 97 - Laboratory Lab Results: Lab Results 01/19/18 Range/Units 12:26 WBC 6.2 (3.5-10.8) 10^3/ul RBC 5.12 (4.00-5.40) 10^6/ul Hgb 15.7 (14.0-18.0) g/dl Hct 46 (42-52) % MCV 89 (80-94) fL MCH 31 (27-31) pg MCHC 35 (31-36) g/dl RDW 14 (10.5-15) % Plt Count 162 (150-450) 10^3/ul MPV 9.4 (7.4-10.4) um3 Neut % (Auto) 43.3 (38-83) % Lymph % (Auto) 42.4 (25-47) % [place] % (Auto) 9.3 H (0-7) % Eos % (Auto) 4.3 (0-6) % Baso % (Auto) 0.7 (0-2) % Absolute Neuts (auto) 2.7 (1.5-7.7) 10^3/ul Absolute Lymphs (auto) 2.6 (1.0-4.8) 10^3/ul Absolute Monos (auto) 0.6 (0-0.8) 10^3/ul Absolute Eos (auto) 0.3 (0-0.6) 10^3/ul Absolute Basos (auto) 0 (0-0.2) 10^3/ul Absolute Nucleated RBC 0 10^3/ul Nucleated RBC % 0.1 Result Diagrams: 01/19/18 12:26 01/19/18 12:26 Lab Statement: Any lab studies that have been ordered have been reviewed, and results considered in the medical decision making process. Flu Symptom Course/Dx - Course Course Of Treatment: During the course of treatment, the patient is evaluated for diffuse myalgias, back pain and symptoms of a viral illness. He states he may be dehydrated due to working outside frequently over the past several days. History of drug abuse, but denies this currently. Patient is a smoker. Labs obtained and are unremarkable. Patient was unable to give us a urine specimen in the ED. Chest x-ray shows no ac pulmonary findings. His vital signs are stable. EKG shows sinus bradycardia with probable normal early repo pattern. Patient is given 30 mg Toradol with relief in the ED. He will be given no-no for work, increase fluids, rest and will return to the ED for any worsening or changing symptoms. - Diagnoses Provider Diagnoses: Back pain Discharge - Sign-Out/Discharge Documenting (check all that apply): Discharge/Admit/Transfer - Discharge Plan Condition: Stable Disposition: HOME Prescriptions: Ketorolac TAB * [Toradol TAB *] 10 mg PO Q6H #16 tab Patient Education Materials: Back Pain (ED) Referrals: No Primary Care Phys,NOPCP [Primary Care Provider] - Additional Instructions: Drink plenty of fluids Follow-up with her PCP Toradol as prescribed for back pain Heat to the back as much as possible Rest Do not smoke - Billing Disposition and Condition Condition: STABLE Disposition: Home
[2018-01-19 13:03] LABS: EGFR Non-African American 84.1 (>60)
[2018-01-19 13:33] VITALS: BP 130/102
== END | disposition home or self-care (01) ==
LOC: ED 10:40
DX: M54.5 Low back pain (principal); F17.210 Nicotine dependence, cigarettes, uncomplicated; J45.909 Unspecified asthma, uncomplicated; R07.9 Chest pain, unspecified
CPT/HCPCS: 36415; 71046; 80053; 83605; 83735; 84443; 84484; 85025; 86140; 86703; 87476; 87798; 93005; 96360; 96374; 99282; J1885

== ENCOUNTER 2018-02-21 13:03 | Emergency (ER) | payer OTHER ==
--- NOTE | 2018-02-21 14:03 | ED ---
Respiratory - HPI Summary HPI Summary: This is scribe Roni Ayoub documenting for attending Yoon Bearden MD. A 28 y/o male presents to ED c/o upper respiratory illness x 2 days. As per triage, "pt has had mild URI like sx over the past 2 days, congestion and runny nose". According to the patient, he feels like his "throat is ripped apart". Additionally, he has diffuse myalgia (soreness), runny nose and cough with yellow sputum. He stated that it hurts to breathe and whenever he coughs it is painful down his back and sides. His symptoms started yesterday (started feeling sick). Pt denies any previous pneumonia. PMHx of no surgeries and asthma (no inhaler). FHx of asthma. SHx of smoker. Patient did not get influenza shot within the last year. Patient was never hospitalized for asthma. He noted that he gets a asthma attack, he has to wait a couple hours and it usually goes away. No current medications. I, Dr. Yoon Bearden, personally performed the services described in this documentation as scribed in my presence and it is both accurate and complete. - History of Current Complaint Chief Complaint: EDFluSymptoms Stated Complaint: FLU LIKE SYMPTOMS Time Seen by Provider: 02/21/18 13:51 Hx Obtained From: Patient Onset/Duration: Sudden Onset, Lasting Days, Still Present Timing: Constant Initial Severity: Moderate Current Severity: Moderate Pain Intensity: 0 Character: Cough (Productive) - yellow sputum Sputum Amount: Moderate Sputum Color: Yellow Aggravating Factor(s): Nothing Alleviating Factor(s): Nothing Associated Signs and Symptoms: URI, Chest Pain with Cough, Nasal Congestion - Risk Factors Status Asthmaticus Risk Factors: Smoking Pulmonary Embolism Risk Factors: Smoking Pseudomonas Risk Factors: Negative Tuberculosis Risk Factors: Smoking - Allergy/Home Medications Allergies/Adverse Reactions: Allergies Allergy/AdvReac Type Severity Reaction Status Date / Time bee venom protein (honey bee) Allergy Anaphylatic Verified 01/19/18 10:44 Shock PMH/Surg Hx/FS Hx/Imm Hx Previously Healthy: No Endocrine/Hematology History: Denies: Hx Diabetes Cardiovascular History: Denies: Hx Hypertension, Hx Pacemaker/ICD Respiratory History: Reports: Hx Asthma Sensory History: Denies: Hx Contacts or Glasses, Hx Hearing Aid Opthamlomology History: Denies: Hx Contacts or Glasses Psychiatric History: Reports: Hx Inpatient Treatment, Hx Community Mental Health Tx, Hx Schizophrenia, Hx of Violent Episodes Against Others, Hx Substance Abuse, Other Psychiatric Issues/Disorders - h/o Autism Spectrum d/o Denies: Hx Eating Disorder, Hx Panic Disorder - Cancer History Hx Chemotherapy: No Hx Radiation Therapy: No Hx Palliative Cancer Treatment: No - Surgical History Surgery Procedure, Year, and Place: n/a - Immunization History Date of Tetanus Vaccine: UTD Infectious Disease History: No Infectious Disease History: Denies: History Other Infectious Disease, Traveled Outside the [place] in Last 30 Days - Family History Known Family History: Positive: Cardiac Disease - positive to father, Hypertension, Diabetes, Other - unspecified [place]. - Social History Alcohol Use: None Alcohol Amount: hx of etoh abuse Hx Substance Use: Yes Substance Use Type: Reports: Marijuana Substance Use Comment - Amount & Last Used: Alot of Monster drink Hx Tobacco Use: Yes Smoking Status (MU): Heavy Every Day Tobacco Smoker Type: Cigarettes, Cigars Amount Used/How Often: 1 PPD Length of Time of Smoking/Using Tobacco: 8 years Have You Smoked in the Last Year: Yes Review of Systems Negative: Fever Positive: Sore Throat, Nasal Discharge Cardiovascular: Negative Positive: Cough Gastrointestinal: Negative Positive: Myalgia - Diffuse Skin: Negative Neurological: Negative Psychological: Normal All Other Systems Reviewed And Are Negative: Yes Physical Exam - Summary Physical Exam Summary: Appearance: ill-appearing, moderate pain distress with cough, well-nourished, clear rhinorrhea dripping from nose Skin:Warm, color reflects adequate perfusion, dry Head:Normal Head/Face inspection, atraumatic Eyes: Conjunctiva clear ENT:Clear rhinorrhea, red posterior pharynx, no tonsillar hypertropy or exudate. Neck:Supple, no nodes, no JVD Respiratory: Expiratory wheezes throughout, no respiratory distress Cardio: RRR, No murmur, pulses normal, brisk capillary refill Abdomen: Soft, nontender Bowel sounds: Present Musculoskeletal: Strength Intact/ROM intact, no calf tenderness, no edema. Psychological: poor eye contact Neuro: Alert, muscle tone normal, no focal deficit Triage Information Reviewed: Yes Vital Signs On Initial Exam: Initial Vitals Temp Pulse Resp BP Pulse Ox 98.9 F 90 18 143/83 98 02/21/18 13:05 02/21/18 13:05 02/21/18 13:05 02/21/18 13:05 02/21/18 13:05 Vital Signs Reviewed: Yes Diagnostics - Vital Signs Vital Signs Temp Pulse Resp BP Pulse Ox 02/21/18 13:05 98.9 F 90 18 143/83 98 - Laboratory Lab Statement: Any lab studies that have been ordered have been reviewed, and results considered in the medical decision making process. - Radiology CXR Radiology Interpretation Completed By: Radiologist - No active disease. ED physician reviewed this radiology report. Re-Evaluation - Re-Evaluation First Eval Re-Evaluation Time: 15:43 Change: Improved Comment: Patient is feeling better. Lungs are clear. States he does not want scripts for Ibuprofen as he has marijuana in the car that he will use for pain. Advised of medications prescribed and definite follow-up. Disposition - Course Course Of Treatment: A 28 y/o male presents to ED c/o upper respiratory illness and wheezing. A CXR revealed no active disease. In the ED course, the patient recieved Albuterol neb which he took only "4 puffs" because it made him cough, and ibuprofen 800mg for generalized myalgias. Patient medications reviewed this visit. During reevaluation, patient is feeling better. Lungs are clear. Rapid strep is neg. Sputum culture is sent. Advised of prescribed medications and need definite follow-up, and to get established with PCP. Patient will be discharged with a diagnosis of acute asthmatic bronchitis. Patient is to follow up with PCP in 2 days. Patient is not to return to work until Tuesday, February. Patient is agreeable with this plan. - Differential Dx - Cardiopulmonary Differential Diagnoses - Cardiopulmonary: Airway Obstruction, Asthma, Bronchitis , Lower Resp Infection, Pleurisy - Diagnoses Provider Diagnoses: Acute asthmatic bronchitis Discharge - Sign-Out/Discharge Documenting (check all that apply): Patient Departure - DISCHARGE - Discharge Plan Condition: Stable Disposition: HOME Prescriptions: Albuterol HFA INHALER* [Ventolin HFA Inhaler*] 2 puff INH Q4H PRN #1 mdi PRN Reason: Wheezing Azithromycin TAB* [Zithromax TAB (Z-ANDERS) 250 mg #6 tabs] 2 tab PO .TODAY, THEN 1 DAILY #1 anders predniSONE TAB* [Deltasone 20 MG TAB*] 40 mg PO DAILY #10 tab Patient Education Materials: Acute Bronchitis (ED), Bronchospasm (ED) Forms: *Work Release Referrals: [facility] [Outside] - 2 Days [facility] PHYSICIAN REFERRAL [Outside] - As Soon As Possible Additional Instructions: Your strep test was negative. Your chest xray did not show pneumonia. We believe that you have asthmatic bronchits and have send prescriptions for an antibiotic, azithromycin for 5 days, prednisone, a steroid, to open up your airways and decrease cough and wheezing, and an inhaler that you should use around the clock for the next 48 hrs, and then as needed. We have given you a work release until Tuesday02/27/18. We have given you a referral to our [facility] clinic and they will see you in the next 1-3 days if needed. We also gave you a number for a [facility] referral to get a primary care provider. You need to get established with a primary care provider. RETURN TO ED FOR ANY NEW OR WORSENING SYMPTOMS. - Billing Disposition and Condition Condition: STABLE Disposition: Home
[2018-02-21] MEDS ORDERED: Albuterol/Ipratropium NEB.SOL* Albuterol 2.5 MG/Ipratropium 0.5 MG 3 ML INH ONE (14:05)
[2018-02-21] MEDS ORDERED: Ibuprofen TAB* 800 MG PO ONE (14:10)
--- NOTE | 2018-02-21 14:53 | RAD ---
INDICATION: Cough. Asthma COMPARISON: January 19, 2018 TECHNIQUE: PA and lateral dual-energy views were obtained. FINDINGS: Bones/Soft Tissues: There are no acute bony findings. Cardiomediastinal: The cardiomediastinal silhouette is normal. Lungs: There are no infiltrates. Pleura: There are no pleural effusions. Other: None IMPRESSION: NO ACTIVE DISEASE.
[2018-02-21 16:21] VITALS: BP 124/65
== END 2018-02-21 16:20 | disposition home or self-care (01) ==
LOC: ED 13:03
DX: J45.901 Unspecified asthma with (acute) exacerbation (principal); F17.210 Nicotine dependence, cigarettes, uncomplicated; F17.290 Nicotine dependence, other tobacco product, uncomplicated
CPT/HCPCS: 71046; 87070; 87205; 87651; 99282; A9270-GY

== ENCOUNTER 2018-04-19 05:22 | Emergency (ER) | payer OTHER ==
[2018-04-19 06:33] LABS: ABS Basophils 0.1 10^3/ul (0-0.2); ABS Eosinophils 0.4 10^3/ul (0-0.6); ABS Lymphocytes 3.4 10^3/ul (1.0-4.8); ABS Monocytes 0.6 10^3/ul (0-0.8); ABS Neutrophils 3.8 10^3/ul (1.5-7.7); ABS Nucleated RBC 0 10^3/ul; Eosinophil % 5.3 % (0-6); Hematocrit 46 % (42-52); Hemoglobin 15.8 g/dl (14.0-18.0); Lymphocyte % 40.4 % (25-47); Mean Corpuscular HGB Conc 34 g/dl (31-36); Mean Corpuscular Hemoglobin 31 pg (27-31); Mean Corpuscular Volume 89 fL (80-94); Nucleated Red Blood Cells % 0.1; Platelet Count 191 10^3/ul (150-450); Red Blood Count 5.17 10^6/ul (4.00-5.40); Red Cell Distribution Width 14 % (10.5-15); White Blood Count 8.3 10^3/ul (3.5-10.8)
[2018-04-19] MEDS ORDERED: NS 0.9% 1000 ML* 1,000 ML IV ONE (07:24)
--- NOTE | 2018-04-19 07:58 | ED ---
Influenza-Like Illness - HPI Summary HPI Summary: Patient is a 28-year-old otherwise healthy male who presents to the ED with flulike symptoms. He states he awoke this morning feeling dizzy and diaphoretic. Denies any nausea, vomiting. Denies any fevers or chills. He states he was feeling otherwise unwell yesterday and had one episode of emesis. Endorses sick contacts. Denies any sore throat, ear pain, chest pain, however endorses some mild SOB. Patient is a heavy smoker. Takes no medications. - History of Current Complaint Chief Complaint: EDDizziness Time Seen by Provider: 04/19/18 05:40 Hx Obtained From: Patient Onset/Duration: Sudden Onset Severity: Moderate Associated Signs & Symptoms: F/C, Cough - Risk Factors Influenza Risk Factors: Negative - Allergy/Home Medications Allergies/Adverse Reactions: Allergies Allergy/AdvReac Type Severity Reaction Status Date / Time bee venom protein (honey bee) Allergy Anaphylatic Verified 04/19/18 05:28 Shock PMH/Surg Hx/FS Hx/Imm Hx Previously Healthy: Yes Endocrine/Hematology History: Denies: Hx Diabetes Cardiovascular History: Denies: Hx Hypertension, Hx Pacemaker/ICD Respiratory History: Reports: Hx Asthma Sensory History: Denies: Hx Contacts or Glasses, Hx Hearing Aid Opthamlomology History: Denies: Hx Contacts or Glasses Psychiatric History: Reports: Hx Inpatient Treatment, Hx Community Mental Health Tx, Hx Schizophrenia, Hx of Violent Episodes Against Others, Hx Substance Abuse, Other Psychiatric Issues/Disorders - h/o Autism Spectrum d/o Denies: Hx Eating Disorder, Hx Panic Disorder - Cancer History Hx Chemotherapy: No Hx Radiation Therapy: No Hx Palliative Cancer Treatment: No - Surgical History Surgery Procedure, Year, and Place: n/a - Immunization History Date of Tetanus Vaccine: UTD Hx Pertussis Vaccination: No Immunizations Up to Date: Yes Infectious Disease History: No Infectious Disease History: Denies: History Other Infectious Disease, Traveled Outside the [place] in Last 30 Days - Family History Known Family History: Positive: Cardiac Disease - positive to father, Hypertension, Diabetes, Other - unspecified [place]. - Social History Occupation: Employed Full-time Lives: Alone Alcohol Use: None Alcohol Amount: hx of etoh abuse Hx Substance Use: Yes Substance Use Type: Reports: Excessive Caffeine, Marijuana Substance Use Comment - Amount & Last Used: Alot of Monster drink Hx Tobacco Use: Yes Smoking Status (MU): Heavy Every Day Tobacco Smoker Type: Cigarettes, Cigars Amount Used/How Often: 1 PPD Length of Time of Smoking/Using Tobacco: 8 years Have You Smoked in the Last Year: Yes Review of Systems Positive: Chills, Fatigue, Skin Diaphoresis. Negative: Fever Negative: Photophobia, Blurred Vision, Diplopia, Drainage Negative: Sore Throat, Ear Ache Negative: Palpitations, Chest Pain Positive: Shortness Of Breath, Cough Negative: Abdominal Pain, Vomiting, Diarrhea, Nausea Negative: Arthralgia, Myalgia Skin: Negative All Other Systems Reviewed And Are Negative: Yes Physical Exam Triage Information Reviewed: Yes Vital Signs On Initial Exam: Initial Vitals Temp Pulse Resp BP Pulse Ox 97.5 F 68 16 149/99 96 04/19/18 05:25 04/19/18 05:25 04/19/18 05:25 04/19/18 05:25 04/19/18 05:25 Vital Signs Reviewed: Yes Appearance: Positive: Well-Appearing, Well-Nourished Skin: Positive: Warm, Skin Color Reflects Adequate Perfusion Head/Face: Positive: Normal Head/Face Inspection Eyes: Positive: EOMI, TUSHAR, Conjunctiva Clear Neck: Positive: Supple, No Lymphadenopathy Respiratory/Lung Sounds: Positive: Wheezes Cardiovascular: Positive: Pulses are Symmetrical in both Upper and Lower Extremities Musculoskeletal: Positive: Normal, Strength/ROM Intact Neurological: Positive: Sensory/Motor Intact, Alert, Oriented to Person Place, Time, Speech Normal Psychiatric: Positive: Normal, Affect/Mood Appropriate AVPU Assessment: Alert Diagnostics - Vital Signs Vital Signs Temp Pulse Resp BP Pulse Ox 04/19/18 07:34 56 100/61 92 04/19/18 07:04 56 112/74 91 04/19/18 07:00 65 92 04/19/18 06:00 60 93 04/19/18 05:55 63 141/94 93 04/19/18 05:54 65 95 04/19/18 05:25 97.5 F 68 16 149/99 96 - Laboratory Lab Results: Lab Results 04/19/18 04/19/18 04/19/18 Range/Units 06:15 06:15 07:16 WBC 8.3 (3.5-10.8) 10^3/ul RBC 5.17 (4.00-5.40) 10^6/ul Hgb 15.8 (14.0-18.0) g/dl Hct 46 (42-52) % MCV 89 (80-94) fL MCH 31 (27-31) pg MCHC 34 (31-36) g/dl RDW 14 (10.5-15) % Plt Count 191 (150-450) 10^3/ul MPV 9.0 (7.4-10.4) um3 Neut % (Auto) 45.7 (38-83) % Lymph % (Auto) 40.4 (25-47) % [place] % (Auto) 7.8 H (0-7) % Eos % (Auto) 5.3 (0-6) % Baso % (Auto) 0.8 (0-2) % Absolute Neuts (auto) 3.8 (1.5-7.7) 10^3/ul Absolute Lymphs (auto) 3.4 (1.0-4.8) 10^3/ul Absolute Monos (auto) 0.6 (0-0.8) 10^3/ul Absolute Eos (auto) 0.4 (0-0.6) 10^3/ul Absolute Basos (auto) 0.1 (0-0.2) 10^3/ul Absolute Nucleated RBC 0 10^3/ul Nucleated RBC % 0.1 Sodium 140 (135-145) mmol/L Potassium 3.9 (3.5-5.0) mmol/L Chloride 106 (101-111) mmol/L Carbon Dioxide 25 (22-32) mmol/L Anion Gap 9 (2-11) mmol/L BUN 17 (6-24) mg/dL Creatinine 1.01 (0.67-1.17) mg/dL Est GFR ( Amer) 106.4 (>60) Est GFR (Non-Af Amer) 88.0 (>60) BUN/Creatinine Ratio 16.8 (8-20) Glucose 109 H (70-100) mg/dL Calcium 9.2 (8.6-10.3) mg/dL Total Bilirubin 0.40 (0.2-1.0) mg/dL AST 22 (13-39) U/L ALT 21 (7-52) U/L Alkaline Phosphatase 55 (34-104) U/L Total Protein 6.7 (6.4-8.9) g/dL Albumin 4.3 (3.2-5.2) g/dL Globulin 2.4 (2-4) g/dL Albumin/Globulin Ratio 1.8 (1-3) Influenza A (Rapid) Negative (Negative) Influenza B (Rapid) Negative (Negative) Result Diagrams: 04/19/18 06:15 04/19/18 06:15 Lab Statement: Any lab studies that have been ordered have been reviewed, and results considered in the medical decision making process. Flu Symptom Course/Dx - Course Course Of Treatment: During the course treatment, the patient's evaluated for flulike symptoms. Flu negative. Chest x-ray obtained and shows no acute cardiopulmonary findings. Labs obtained are all WNL. Patient is given 1 L fluids. He states he feels better and is discharged with viral syndrome. - Diagnoses Differential Diagnosis/HQI/PQRI: Positive: Bronchitis, Influenza, Pneumonia, Upper Respiratory Infection Provider Diagnoses: Viral syndrome Discharge - Sign-Out/Discharge Documenting (check all that apply): Patient Departure - Discharge Plan Condition: Stable Disposition: HOME Referrals: No Primary Care Phys,NOPCP [Primary Care Provider] - Additional Instructions: Drink plenty of fluids - Billing Disposition and Condition Condition: STABLE Disposition: Home
--- NOTE | 2018-04-19 07:59 | RAD ---
INDICATION: Wheezing, shortness of breath. History of tobacco use. COMPARISON: February 21, 2018 TECHNIQUE: Dual energy PA and routine lateral views of the chest were obtained. REPORT: Costochondral calcifications noted at the LEFT first rib. Elevated lung volumes. No focal pulmonary lesion, compelling alveolar consolidation, pleural effusion, pneumothorax. The heart, pulmonary vasculature, and mediastinal contours are unremarkable. Unremarkable soft tissue contours and osseous structures. IMPRESSION: #. Elevated lung volumes may reflect obstructive lung disease or simply exuberant inspiratory effort for examination. #. No evidence for pneumonia. R1
[2018-04-19 09:30] VITALS: BP 133/86
== END 2018-04-19 09:28 | disposition home or self-care (01) ==
LOC: ED 05:22
DX: B34.9 Viral infection, unspecified (principal); R53.83 Other fatigue; R06.02 Shortness of breath
CPT/HCPCS: 36415; 71046; 80053; 85025; 99283

== ENCOUNTER 2019-07-19 23:06 | Inpatient (IN) | payer OTHER ==
[2019-07-19] MEDS ORDERED: Albuterol/Ipratropium NEB.SOL* Albuterol 2.5 MG/Ipratropium 0.5 MG 3 ML INH ONE (23:43)
[2019-07-19] MEDS ORDERED: NS 0.9% 1000 ML** 1,000 ML IV ONE (23:50)
[2019-07-19] MEDS ORDERED: Ondansetron INJ* 2 MG/ML VIAL IV ONE (23:52)
[2019-07-19] MEDS ORDERED: Ketorolac INJ* 30 MG/ML 1 ML VIAL IV PUSH ONE (23:52)
--- NOTE | 2019-07-19 23:56 | ED ---
HPI Febrile Illness - HPI Summary HPI Summary: This patient is a 29 year old male presenting to [facility] with a chief complaint of flu-like symptoms. He reports fever,chills, nausea, vomiting, weakness, and body aches. He states it started in [place] 2 days ago. He states he had half a bottle of juice today. He states he has not taken any medication today. He states he does not take Ibuprofen because "it screws up his stomach". He states he has been around people who believe they have the flu. - History of Current Complaint Chief Complaint: EDGeneral Time Seen by Provider: 07/19/19 23:43 Hx Obtained From: Patient Onset/Duration: Started Days Ago Pain Intensity: 10 Pain Scale Used: 0-10 Numeric - Additional Pertinent History Primary Care Physician: ALEXSANDRA - Allergy/Home Medications Allergies/Adverse Reactions: Allergies Allergy/AdvReac Type Severity Reaction Status Date / Time bee venom protein (honey bee) Allergy Anaphylatic Verified 07/19/19 23:12 Shock Home Medications: Home Medications NK [No Home Medications Reported] 07/19/19 [History Confirmed 07/19/19] PMH/Surg Hx/FS Hx/Imm Hx Endocrine/Hematology History: Denies: Hx Diabetes Cardiovascular History: Denies: Hx Hypertension, Hx Pacemaker/ICD Respiratory History: Reports: Hx Asthma Sensory History: Denies: Hx Contacts or Glasses, Hx Hearing Aid Opthamlomology History: Denies: Hx Contacts or Glasses Psychiatric History: Reports: Hx Inpatient Treatment, Hx Community Mental Health Tx, Hx Schizophrenia, Hx of Violent Episodes Against Others, Hx Substance Abuse, Other Psychiatric Issues/Disorders - h/o Autism Spectrum d/o Denies: Hx Eating Disorder, Hx Panic Disorder - Cancer History Hx Chemotherapy: No Hx Radiation Therapy: No Hx Palliative Cancer Treatment: No - Surgical History Surgery Procedure, Year, and Place: none - Immunization History Date of Tetanus Vaccine: UTD Date of Influenza Vaccine: none Infectious Disease History: No Infectious Disease History: Denies: History Other Infectious Disease, Traveled Outside the [place] in Last 30 Days - Family History Known Family History: Positive: Cardiac Disease - positive to father, Hypertension, Diabetes, Other - unspecified [place]. - Social History Alcohol Use: None Alcohol Amount: hx of etoh abuse Hx Substance Use: Yes Substance Use Type: Reports: Excessive Caffeine, Marijuana Substance Use Comment - Amount & Last Used: Alot of Monster drink Hx Tobacco Use: Yes Smoking Status (MU): Heavy Every Day Tobacco Smoker Type: Cigarettes, Cigars Amount Used/How Often: 1 PPD Length of Time of Smoking/Using Tobacco: 8 years Have You Smoked in the Last Year: Yes Review of Systems Positive: Fever, Chills, Other - Body aches Positive: Abdominal Pain, Vomiting, Nausea Positive: Weakness All Other Systems Reviewed And Are Negative: Yes Physical Exam - Summary Physical Exam Summary: General: Well-developed, Well-nourished MALE. No acute distress. HEENT: Normocephalic, Atraumatic. Eyes: Conjuctiva normal, PERRL. Oropharynx: Clear, mucous membranes moist, (-) exudates. Neck: Soft, FROM, (-) lymphadenopathy, (-) thyromegaly, (-) JVD. Cardiovascular: Normal sinus rhythm, (-) murmur. Lungs: Clear to auscultation bilaterally (-) wheezes, (-) rales, (-) rhonchi. Abdomen: Soft, non-tender, non-distended, (-) organomegaly, normal bowel sounds. Back: (-) CVA tenderness Extremities: No edema. Skin: Warm, dry, (-) rash. Neuro: Alert and oriented x3, no focal deficits. Psychiatric: Mood normal, affect normal. Triage Information Reviewed: Yes Vital Signs On Initial Exam: Initial Vitals Temp Pulse Resp BP Pulse Ox 103.2 F 120 18 133/82 90 07/19/19 23:08 07/19/19 23:08 07/19/19 23:08 07/19/19 23:08 07/19/19 23:08 Vital Signs Reviewed: Yes Procedures - Sedation Patient Received Moderate/Deep Sedation with Procedure: No Diagnostics - Vital Signs Vital Signs Temp Pulse Resp BP Pulse Ox 07/19/19 23:26 120 92/59 93 07/19/19 23:08 103.2 F 120 18 133/82 90 - Laboratory Result Diagrams: 07/20/19 00:15 07/20/19 00:15 Lab Statement: Any lab studies that have been ordered have been reviewed, and results considered in the medical decision making process. - Radiology CXR Radiology Interpretation Completed By: ED Physician Summary of Radiographic Findings: No pneumonia. Pending official radiologist report. - EKG 0001 Cardiac Rate: Tachycardia - 118 BPM EKG Rhythm: Sinus Tachycardia Summary of EKG Findings: No STEMI. ED Physician has reviewed and interpreted this EKG. Course/Dx - Course Course Of Treatment: 29 year old male presents with acute illness. he states he has the flu. has been coughing for 48 hours. severe chills, fevers, sweating. aching everywhere, bones hurt. patient has autism per his chart. was hypoxic upon arrival and received 2 liters iv fluids, 3 nubulizer treatments. also toradol, tylenol and ibuprofen. still febrile and hypoxic. flu b positive. cxr negative. referred to hospitalist for admission. - Diagnoses Provider Diagnoses: Influenza B, Hypoxemia Discharge ED - Sign-Out/Discharge Documenting (check all that apply): Patient Departure - Admission, accepted by Dr. bAraham, Hospitalist - Discharge Plan Condition: Stable Disposition: ADMITTED TO [facility] Patient Education Materials: Influenza (ED) Referrals: [facility] [Outside] Additional Instructions: Return to ED with new or worsening symptoms. - Billing Disposition and Condition Condition: STABLE Disposition: Admitted to [facility] - Attestation Statements Document Initiated by Scribe: Yes Documenting Scribe: Donavon Hassan Provider For Whom Scribe is Documenting (Include Credential): Jenni Bowser MD Scribe Attestation: Donavon Lara, scribed for Jenni Bowser MD on 07/20/19 at 0603. Scribe Documentation Reviewed: Yes Provider Attestation: The documentation as recorded by the Donavon bruno accurately reflects the service I personally performed and the decisions made by me, Jenni Bowser MD Status of Scribe Document: Viewed
[2019-07-20 00:35] LABS: ABS Lymphocytes 0.8 10^3/ul (1.0-4.8); ABS Monocytes 0.5 10^3/ul (0-0.8); ABS Neutrophils 6.6 10^3/ul (1.5-7.7); Hematocrit 48 % (42-52); Hemoglobin 16.7 g/dL (14.0-18.0); Lymphocyte % 9.8 %; Mean Corpuscular HGB Conc 35 g/dL (31-36); Mean Corpuscular Hemoglobin 32 pg (27-31); Mean Corpuscular Volume 91 fL (80-94); Mean Platelet Volume 9.3 fL (7.4-10.4); Nucleated Red Blood Cells % 0.1; Platelet Count 133 10^3/uL (150-450); Red Cell Distribution Width 14 % (10-15)
[2019-07-20 00:45] LABS: Influenza B Molecular POSITIVE (Negative)
[2019-07-20 00:56] LABS: Albumin 4.8 g/dL (3.2-5.2); Albumin/Globulin Ratio 1.8 (1-3); BUN/Creatinine Ratio 15.8 (8-20); C Reactive Protein 31.3 mg/L (<8.01); Calcium 9.3 mg/dL (8.6-10.3); EGFR African American 65.9 (>60); EGFR Non-African American 54.5 (>60); Globulin 2.7 g/dL (2-4); Potassium 4.5 mmol/L (3.5-5.0); Total Bilirubin 0.7 mg/dL (0.2-1.0); Total Protein 7.5 g/dL (6.4-8.9)
[2019-07-20 00:57] LABS: Troponin I 0.01 ng/mL (<0.03)
[2019-07-20 01:03] LABS: INR 1.4 (0.82-1.09)
[2019-07-20] MEDS ORDERED: Acetaminophen TAB* 325 MG PO ONE (01:05)
[2019-07-20] MEDS ORDERED: NS 0.9% 1000 ML** 1,000 ML IV ONE ×2 (01:05→03:01)
[2019-07-20] MEDS ORDERED: Albuterol 2.5 MG/3 ML NEB.SOL* (0.083%) INH ONE (02:31)
[2019-07-20 03:01] LABS: Urine Appearance Clear; Urine Bilirubin Negative (Negative); Urine Blood Negative (Negative); Urine Color Yellow; Urine Glucose Negative (Negative); Urine Ketones 2+ (Negative); Urine Nitrite Negative (Negative); Urine Protein Negative (Negative); Urine Specific Gravity 1.025 (1.010-1.030); Urine Urobilinogen Negative (Negative)
[2019-07-20] MEDS ORDERED: Albuterol/Ipratropium NEB.SOL* Albuterol 2.5 MG/Ipratropium 0.5 MG 3 ML INH ONE (03:01)
[2019-07-20] MEDS ORDERED: Ibuprofen TAB* 400 MG PO ONE (03:55)
[2019-07-20] MEDS ORDERED: Albuterol 2.5 MG/3 ML NEB.SOL* (0.083%) INH PRN (04:44)
[2019-07-20] MEDS ORDERED: NS 0.9% 1000 ML** 1,000 ML IV SCH (04:45)
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
[2019-07-20 08:26] LABS: ABS Lymphocytes 0.9 10^3/ul (1.0-4.8); ABS Monocytes 0.4 10^3/ul (0-0.8); ABS Neutrophils 8.1 10^3/ul (1.5-7.7); Hematocrit 42 % (42-52); Hemoglobin 14.4 g/dL (14.0-18.0); Lymphocyte % 9.4 %; Mean Corpuscular HGB Conc 34 g/dL (31-36); Mean Corpuscular Hemoglobin 31 pg (27-31); Mean Corpuscular Volume 90 fL (80-94); Mean Platelet Volume 8.6 fL (7.4-10.4); Nucleated Red Blood Cells % 0.1; Platelet Count 117 10^3/uL (150-450); Red Blood Count 4.68 10^6 /uL (4.18-5.48); Red Cell Distribution Width 14 % (10-15); White Blood Count 9.4 10^3/uL (3.5-10.8)
[2019-07-20 08:40] LABS: BUN/Creatinine Ratio 16.1 (8-20); Calcium 7.7 mg/dL (8.6-10.3); EGFR African American 83.4 (>60); EGFR Non-African American 68.9 (>60); Potassium 3.9 mmol/L (3.5-5.0)
[2019-07-20] MEDS: Oseltamivir CAP* 75 MG CAP PO SCH ×2 (10:33→21:06)
--- NOTE | 2019-07-20 11:31 | PN ---
Subjective Date of Service: 07/20/19 Interval History: Patient is tired today. Complains of cough and pain in chest with coughing and deep breathing, but is otherwise unaffected by positioning. Patient does not feel markedly SOB, but has not gotten up. Patient denies muscle aches. Patient has decreased subjective fevers. Patient denies abdominal pain or diarrhea. Family History: Unchanged from Admission Social History: Unchanged from Admission Past Medical History: Unchanged from Admission Objective Active Medications: Acetaminophen (Tylenol Tab*) 650 mg PO Q4H PRN PRN Reason: PAIN - MILD Albuterol (Ventolin 2.5 Mg/3 Ml Neb.Ashley*) 2.5 mg INH [id number] AWAKE PRN PRN Reason: sob/wheezing Sodium Chloride (Ns 0.9% 1000 Ml) 1,000 mls @ 125 mls/hr IV PER RATE [facility] Last Admin: 07/20/19 08:09 Dose: 125 mls/hr Oseltamivir Phosphate (Tamiflu Cap*) 75 mg PO BID [facility] Stop: 07/25/19 08:59 Last Admin: 07/20/19 10:33 Dose: 75 mg Vital Signs - 8 hr 07/20/19 07/20/19 07/20/19 03:26 03:56 04:00 Temperature Pulse Rate 120 137 131 Respiratory Rate Blood Pressure 111/57 107/60 (mmHg) O2 Sat by Pulse 86 92 88 Oximetry 07/20/19 07/20/19 07/20/19 04:09 04:26 04:56 Temperature 100.4 F Pulse Rate 120 120 106 Respiratory 24 Rate Blood Pressure 107/60 109/55 108/63 (mmHg) O2 Sat by Pulse 92 90 90 Oximetry 07/20/19 07/20/19 07/20/19 05:00 05:26 05:53 Temperature 99 F Pulse Rate 122 103 Respiratory Rate Blood Pressure 111/59 (mmHg) O2 Sat by Pulse 89 92 Oximetry 07/20/19 07/20/19 07/20/19 05:56 06:01 06:37 Temperature 99 F Pulse Rate 105 113 113 Respiratory 18 Rate Blood Pressure 106/57 106/57 (mmHg) O2 Sat by Pulse 91 91 95 Oximetry 07/20/19 06:54 Temperature 98.0 F Pulse Rate 86 Respiratory 20 Rate Blood Pressure 100/60 (mmHg) O2 Sat by Pulse 93 Oximetry Oxygen Devices in Use Now: Nasal Cannula Appearance: Patient is a 29yo male who appears stated age and is sitting in the bed in NAD. Eyes: No Scleral Icterus, PERRLA Ears/Nose/Mouth/Throat: NL Teeth, Lips, Gums, Clear Oropharnyx, Mucous Membranes Moist Neck: NL Appearance and Movements; NL JVP, Trachea Midline Respiratory: Symmetrical Chest Expansion and Respiratory Effort, - - Slight expiratory wheezing. Cardiovascular: NL Sounds; No Murmurs; No JVD, No Edema, - - Tachycardia Abdominal: NL Sounds; No Tenderness; No Distention, No Hepatosplenomegaly Lymphatic: No Cervical Adenopathy Extremities: No Edema, No Clubbing, Cyanosis Skin: No Rash or Ulcers, No Nodules or Sclerosis Neurological: Alert and Oriented x 3, NL Sensation, NL Muscle Strength and Tone , - - CN II-XII intact. Result Diagrams: 07/20/19 08:19 07/20/19 08:19 Microbiology and Other Data: Influenza B positive. Diagnostic Imaging: CXR clear. EKG Data: EKG: sinus tachy with HR 118. Assess/Plan/Problems-Billing Assessment: Patient is a 29yo male with no signficant PMH who is here with hypoxia related to the flu. - Patient Problems (1) Influenza B Current Visit: Yes Status: Acute Code(s): J10.1 - FLU DUE TO OTH IDENT INFLUENZA VIRUS W OTH RESP MANIFEST SNOMED Code(s): 33201211 Comment: - With classic syndrome. - Associated with cough and hypoxia - Continue Tamiflu and supportive care. (2) Acute respiratory failure with hypoxia Current Visit: Yes Status: Acute Code(s): J96.01 - ACUTE RESPIRATORY FAILURE WITH HYPOXIA SNOMED Code(s): 46812256 Comment: - On 2L O2, Wean as tolerated - Due to Flu (3) Chest pain Current Visit: Yes Status: Acute Code(s): R07.9 - CHEST PAIN, UNSPECIFIED SNOMED Code(s): 45675667 Comment: - Likely due to coughing - EKG non-ischemic, No signs of mejia-pericarditis - Troponin negative. (4) Full code status Current Visit: Yes Status: Acute Code(s): Z78.9 - OTHER SPECIFIED HEALTH STATUS SNOMED Code(s): 411775989 (5) DVT prophylaxis Current Visit: Yes Status: Acute Code(s): Z29.9 - ENCOUNTER FOR PROPHYLACTIC MEASURES, UNSPECIFIED SNOMED Code(s): 300810522 Comment: - Full Code Status and Disposition: Inpatient for treatment of Flu
[2019-07-20] MEDS: Benzocaine/Menthol LOZ* 1 LOZENGE PO PRN (12:44)
[2019-07-20] MEDS: Benzonatate CAP* 100 MG PO PRN ×2 (14:03→21:06)
[2019-07-20] MEDS: Acetaminophen TAB* 325 MG PO PRN ×2 (14:04→17:59)
[2019-07-20] MEDS: guaiFENesin/CODIENE 100mg/10mg 5 ML UDC PO PRN ×2 (17:59→23:01)
[2019-07-21] MEDS: Acetaminophen TAB* 325 MG PO PRN ×3 (03:26→19:58)
[2019-07-21] MEDS: guaiFENesin/CODIENE 100mg/10mg 5 ML UDC PO PRN ×3 (03:27→19:59)
[2019-07-21 09:55] LABS: ABS Eosinophils 0.1 10^3/ul (0-0.6); ABS Lymphocytes 1.8 10^3/ul (1.0-4.8); ABS Monocytes 0.5 10^3/ul (0-0.8); ABS Neutrophils 5.3 10^3/ul (1.5-7.7); Hematocrit 41 % (42-52); Lymphocyte % 23.8 %; Mean Corpuscular HGB Conc 35 g/dL (31-36); Mean Corpuscular Hemoglobin 31 pg (27-31); Mean Corpuscular Volume 89 fL (80-94); Mean Platelet Volume 9.5 fL (7.4-10.4); Nucleated Red Blood Cells % 0.1; Platelet Count 117 10^3/uL (150-450); Red Blood Count 4.55 10^6 /uL (4.18-5.48); Red Cell Distribution Width 14 % (10-15); White Blood Count 7.6 10^3/uL (3.5-10.8)
[2019-07-21] MEDS: Oseltamivir CAP* 75 MG CAP PO SCH ×2 (10:03→19:59)
[2019-07-21 10:25] LABS: BUN/Creatinine Ratio 11.9 (8-20); Calcium 8.1 mg/dL (8.6-10.3); EGFR African American 88.3 (>60); Magnesium 1.9 mg/dL (1.9-2.7); Potassium 4.7 mmol/L (3.5-5.0)
--- NOTE | 2019-07-21 14:52 | PN ---
Subjective Date of Service: 07/21/19 Interval History: No acute events overnight. Tmax 100.5 (right now) with fevers/chills. Does not really use inhalers at home, does not remember if has been hospitalized for asthma (dx in 5-6th grade) or seen a lung doctor. Some left rib pain with coughing. Not eating much. On 2.5L to maintain 90%. Avoiding duo-nebs as he felt it made his cough worse/more productive. RESIDENT DOCTOR improving 1.18 from 1.52 on admission. Family History: Unchanged from Admission Social History: Unchanged from Admission Past Medical History: Unchanged from Admission Objective Active Medications: Acetaminophen (Tylenol Tab*) 650 mg PO Q4H PRN PRN Reason: PAIN - MILD Last Admin: 07/21/19 12:13 Dose: 650 mg Albuterol (Ventolin 2.5 Mg/3 Ml Neb.Ashley*) 2.5 mg INH [id number] AWAKE PRN PRN Reason: sob/wheezing Benzonatate (Tessalon Cap*) 100 mg PO BID PRN PRN Reason: COUGH Last Admin: 07/20/19 21:06 Dose: 100 mg Guaifenesin/Codeine Phosphate (Robitussin Ac 100mg/10mg In 5 Ml) 5 ml PO Q4H PRN PRN Reason: COUGH Last Admin: 07/21/19 10:13 Dose: 5 ml Oseltamivir Phosphate (Tamiflu Cap*) 75 mg PO BID [facility] Stop: 07/25/19 08:59 Last Admin: 07/21/19 10:03 Dose: 75 mg Throat Lozenges (Chloraseptic Whit*) 1 whit PO Q6H PRN PRN Reason: SORE THROAT Last Admin: 07/20/19 12:44 Dose: 1 whit Vital Signs - 8 hr 07/21/19 07/21/19 07/21/19 07:30 08:00 11:46 Temperature 99.0 F 100.5 F Pulse Rate 82 76 Respiratory 20 20 18 Rate Blood Pressure 99/52 106/65 (mmHg) O2 Sat by Pulse 90 92 Oximetry Oxygen Devices in Use Now: Nasal Cannula Appearance: NAD, sitting in chair. Eyes: No Scleral Icterus Ears/Nose/Mouth/Throat: NL Teeth, Lips, Gums Neck: NL Appearance and Movements; NL JVP Respiratory: - - bronchspastic with deep breath, moderate air exchange b/l. no humera wheeze, rhonchi or rales. Cardiovascular: NL Sounds; No Murmurs; No JVD Abdominal: NL Sounds; No Tenderness; No Distention, No Hepatosplenomegaly Extremities: No Edema Neurological: Alert and Oriented x 3 Nutrition: Taking PO's Result Diagrams: 07/21/19 09:28 07/21/19 09:28 Additional Lab and Data: Laboratory Results - last 24 hr 07/21/19 07/21/19 09:28 09:28 WBC 7.6 RBC 4.55 Hgb 14.0 Hct 41 L MCV 89 MCH 31 MCHC 35 RDW 14 Plt Count 117 L MPV 9.5 Neut % (Auto) 69.1 Lymph % (Auto) 23.8 [place] % (Auto) 5.9 Eos % (Auto) 1.0 Baso % (Auto) 0.2 Absolute Neuts (auto) 5.3 Absolute Lymphs (auto) 1.8 Absolute Monos (auto) 0.5 Absolute Eos (auto) 0.1 Absolute Basos (auto) 0.0 Absolute Nucleated RBC 0.0 Nucleated RBC % 0.1 Sodium 138 Potassium 4.7 Chloride 107 Carbon Dioxide 26 Anion Gap 5 BUN 14 Creatinine 1.18 H Est GFR ( Amer) 88.3 Est GFR (Non-Af Amer) 73.0 BUN/Creatinine Ratio 11.9 Glucose 98 Calcium 8.1 L Magnesium 1.9 Microbiology and Other Data: Influenza B positive. Microbiology 07/20/19 00:50 Blood Venous Aerobic Blood Culture - Preliminary No Growth Day 1 07/20/19 00:50 Blood Venous Anaerobic Blood Culture - Preliminary No Growth Day 1 07/20/19 00:15 Blood Venous Aerobic Blood Culture - Preliminary No Growth Day 1 07/20/19 00:15 Blood Venous Anaerobic Blood Culture - Preliminary No Growth Day 1 Diagnostic Imaging: CXR clear. EKG Data: EKG: sinus tachy with HR 118. Assess/Plan/Problems-Billing Assessment: 29yo male PMH austism, rare asthma vs bronchitis p/w sepsis and acute hypoxic respiratory failure secondary to Influenza B. - Patient Problems (1) Sepsis Current Visit: Yes Status: Acute Comment: Fever, tachycardia, tachypnea, acute respiratory failure. no lactic acidosis. CANDICE. Source Influenza B. improved though still spiking fevers. f/u BCxs. (2) Acute respiratory failure with hypoxia Current Visit: Yes Status: Acute Code(s): J96.01 - ACUTE RESPIRATORY FAILURE WITH HYPOXIA SNOMED Code(s): 58016297 Comment: - On 2.5L O2, Wean as tolerated - Due to Flu - make duonebs q6 scheduled with q2h prn from q4h prn with none given. (3) Influenza B Current Visit: Yes Status: Acute Code(s): J10.1 - FLU DUE TO OTH IDENT INFLUENZA VIRUS W OTH RESP MANIFEST SNOMED Code(s): 14470532 Comment: - With classic syndrome. - Associated with cough and hypoxia - Continue Tamiflu and supportive care. (4) Asthma Current Visit: Yes Status: Acute Code(s): J45.909 - UNSPECIFIED ASTHMA, UNCOMPLICATED SNOMED Code(s): 278944370 Comment: duonebs as above. Consider steroid initiation if not improved. Does have autism spectrum and report of violent behavior in past so will avoid for now. (5) Chest pain Current Visit: Yes Status: Acute Code(s): R07.9 - CHEST PAIN, UNSPECIFIED SNOMED Code(s): 12885186 Comment: - Likely due to coughing - EKG non-ischemic, No signs of mejia-pericarditis - Troponin negative. (6) Full code status Current Visit: Yes Status: Acute Code(s): Z78.9 - OTHER SPECIFIED HEALTH STATUS SNOMED Code(s): 951126809 Status and Disposition: Inpatient for treatment of Flu causing acute hypoxic respiratory failure/asthma exacerbation.
[2019-07-21] MEDS ORDERED: Albuterol/Ipratropium NEB.SOL* Albuterol 2.5 MG/Ipratropium 0.5 MG 3 ML INH PRN (15:01)
[2019-07-21] MEDS ORDERED: Magnesium Sulfate 2 GM IV* 2 GM/50 ML BAG IVPB ONE (15:02)
[2019-07-21] MEDS: Albuterol 2.5 MG/3 ML NEB.SOL* (0.083%) INH SCH (19:06)
[2019-07-21] MEDS: Benzonatate CAP* 100 MG PO PRN (19:59)
[2019-07-21] MEDS ORDERED: Ondansetron INJ* 2 MG/ML VIAL IV PRN (23:19)
[2019-07-21] MEDS ORDERED: Ondansetron TAB* 4 MG PO PRN (23:48)
[2019-07-21] MEDS ORDERED: Ondansetron ODT TAB* 4 MG ONE (23:57)
[2019-07-22] MEDS: Albuterol 2.5 MG/3 ML NEB.SOL* (0.083%) INH SCH (02:08)
[2019-07-22] MEDS: guaiFENesin/CODIENE 100mg/10mg 5 ML UDC PO PRN (02:13)
[2019-07-22] MEDS: Ondansetron ODT TAB* 4 MG PO PRN ×3 (08:18→21:59)
[2019-07-22] MEDS: Oseltamivir CAP* 75 MG CAP PO SCH ×2 (10:39→20:12)
[2019-07-22] MEDS: Benzonatate CAP* 100 MG PO PRN ×2 (10:39→22:00)
[2019-07-22] MEDS: Albuterol HFA INHALER* 8 gm MDI INH SCH ×2 (14:54→19:45)
[2019-07-22] MEDS: Mometasone/Formoter 200/5 MDI INH SCH ×2 (14:54→19:45)
--- NOTE | 2019-07-22 15:01 | PN ---
Subjective Date of Service: 07/22/19 Interval History: No acute events overnight. Tmax 99.4 got only 1/2 a duoneb at 1900 yesterday but feels like it is too painful, making his lungs burn. desat to 82% off oxygen. Increased to 3L lower abdominal pain when coughing, some dysuria. chronic b/l upper back pain from lifting at work. sleep and eating continues to be poor. refusing codeine. productive cough nausea. Family History: Unchanged from Admission Social History: Unchanged from Admission Past Medical History: Unchanged from Admission Objective Active Medications: Acetaminophen (Tylenol Tab*) 650 mg PO Q4H PRN PRN Reason: PAIN - MILD Last Admin: 07/21/19 19:58 Dose: 650 mg Albuterol (Ventolin Hfa Inhaler*) 2 puff INH [id number] AWAKE [facility] Last Admin: 07/22/19 14:54 Dose: Not Given Albuterol/Ipratropium (Duoneb (Albuterol 2.5 Mg/Ipratropium 0.5 Mg)) 1 neb INH Q2H PRN PRN Reason: SOB/WHEEZING Benzonatate (Tessalon Cap*) 100 mg PO BID PRN PRN Reason: COUGH Last Admin: 07/22/19 10:39 Dose: 100 mg Guaifenesin (Mucinex*) 600 mg PO BID [facility] Mometasone Furoate/Formoterol Fumar (Dulera 200/5 Mdi*) 2 puff INH BID [facility] Last Admin: 07/22/19 14:54 Dose: Not Given Ondansetron HCl (Zofran Odt Tab*) 4 mg PO Q6H PRN PRN Reason: NAUSEA/VOMITING Last Admin: 07/22/19 08:18 Dose: 4 mg Oseltamivir Phosphate (Tamiflu Cap*) 75 mg PO BID [facility] Stop: 07/25/19 08:59 Last Admin: 07/22/19 10:39 Dose: 75 mg Throat Lozenges (Chloraseptic Whit*) 1 whit PO Q6H PRN PRN Reason: SORE THROAT Last Admin: 07/20/19 12:44 Dose: 1 whit Vital Signs - 8 hr 07/22/19 07/22/19 07:15 12:31 Temperature 98.2 F 98.6 F Pulse Rate 77 65 Respiratory 20 18 Rate Blood Pressure 106/61 111/60 (mmHg) O2 Sat by Pulse 92 95 Oximetry Oxygen Devices in Use Now: Nasal Cannula Appearance: mildly uncomfortable appearing. Eyes: No Scleral Icterus Ears/Nose/Mouth/Throat: NL Teeth, Lips, Gums Respiratory: Symmetrical Chest Expansion and Respiratory Effort, Clear to Auscultation Cardiovascular: NL Sounds; No Murmurs; No JVD Abdominal: NL Sounds; No Tenderness; No Distention Extremities: No Edema Skin: No Rash or Ulcers Neurological: Alert and Oriented x 3 Result Diagrams: 07/21/19 09:28 07/21/19 09:28 Additional Lab and Data: Microbiology 07/20/19 00:50 Blood Venous Aerobic Blood Culture - Preliminary No Growth Day 2 07/20/19 00:50 Blood Venous Anaerobic Blood Culture - Preliminary No Growth Day 2 07/20/19 00:15 Blood Venous Aerobic Blood Culture - Preliminary No Growth Day 2 07/20/19 00:15 Blood Venous Anaerobic Blood Culture - Preliminary No Growth Day 2 Microbiology and Other Data: Influenza B positive. Microbiology 07/20/19 00:50 Blood Venous Aerobic Blood Culture - Preliminary No Growth Day 2 07/20/19 00:50 Blood Venous Anaerobic Blood Culture - Preliminary No Growth Day 2 07/20/19 00:15 Blood Venous Aerobic Blood Culture - Preliminary No Growth Day 2 07/20/19 00:15 Blood Venous Anaerobic Blood Culture - Preliminary No Growth Day 2 Diagnostic Imaging: CXR clear. EKG Data: EKG: sinus tachy with HR 118. Assess/Plan/Problems-Billing Assessment: 29yo male PMH austism, rare asthma vs bronchitis p/w sepsis and acute hypoxic respiratory failure secondary to Influenza B. - Patient Problems (1) Sepsis Current Visit: Yes Status: Acute Comment: Fever, tachycardia, tachypnea, acute respiratory failure. no lactic acidosis. CANDICE. Source Influenza B. improved BCx NGTD. UA no e/o infection. (2) Acute respiratory failure with hypoxia Current Visit: Yes Status: Acute Code(s): J96.01 - ACUTE RESPIRATORY FAILURE WITH HYPOXIA SNOMED Code(s): 45853066 Comment: - On 2.5L O2, Wean as tolerated - Due to Flu - does not like duonebs will switch to inhalers. Add dulera. (3) Influenza B Current Visit: Yes Status: Acute Code(s): J10.1 - FLU DUE TO OTH IDENT INFLUENZA VIRUS W OTH RESP MANIFEST SNOMED Code(s): 24896912 Comment: - With classic syndrome. - Associated with cough and hypoxia - Continue Tamiflu and supportive care. (4) Asthma Current Visit: Yes Status: Acute Code(s): J45.909 - UNSPECIFIED ASTHMA, UNCOMPLICATED SNOMED Code(s): 662803891 Comment: duonebs and albuterol inhalers as above. (5) Chest pain Current Visit: Yes Status: Acute Code(s): R07.9 - CHEST PAIN, UNSPECIFIED SNOMED Code(s): 78116640 Comment: - Likely due to coughing - EKG non-ischemic, No signs of mejia-pericarditis - Troponin negative. (6) Full code status Current Visit: Yes Status: Acute Code(s): Z78.9 - OTHER SPECIFIED HEALTH STATUS SNOMED Code(s): 092108152 Status and Disposition: Inpatient for treatment of Flu causing acute hypoxic respiratory failure/asthma exacerbation.
[2019-07-22] MEDS: guaiFENesin ER TAB 600 MG PO SCH ×2 (15:20→20:11)
[2019-07-22] MEDS: Acetaminophen TAB* 325 MG PO PRN (17:14)
[2019-07-22] MEDS ORDERED: LORazepam TAB(*) 1 MG PO ONE (20:42)
[2019-07-22] MEDS ORDERED: Nicotine* 2MG (FRUIT FLAVOR) GUM PO PRN (20:44)
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
[2019-07-22] MEDS: Nicotine PATCH 21 MG/24 HR* PATCH TRANSDERM SCH (21:02)
[2019-07-22] MEDS: Nicotine Patch Removal NOTE FOLLOW UP SCH (21:45)
[2019-07-22] MEDS: Benzocaine/Menthol LOZ* 1 LOZENGE PO PRN (22:00)
[2019-07-23] MEDS: Albuterol HFA INHALER* 8 gm MDI INH SCH ×2 (01:33→07:44)
[2019-07-23] MEDS: Acetaminophen TAB* 325 MG PO PRN ×2 (03:16→08:22)
[2019-07-23] MEDS: Mometasone/Formoter 200/5 MDI INH SCH ×2 (07:30→20:38)
[2019-07-23 08:20] LABS: ABS Lymphocytes 1.7 10^3/ul (1.0-4.8); ABS Monocytes 0.9 10^3/ul (0-0.8); ABS Neutrophils 6.7 10^3/ul (1.5-7.7); Eosinophil % 0.3 %; Hematocrit 43 % (42-52); Hemoglobin 14.9 g/dL (14.0-18.0); Lymphocyte % 17.8 %; Mean Corpuscular HGB Conc 35 g/dL (31-36); Mean Corpuscular Hemoglobin 31 pg (27-31); Mean Corpuscular Volume 89 fL (80-94); Platelet Count 133 10^3/uL (150-450); Red Blood Count 4.81 10^6 /uL (4.18-5.48); Red Cell Distribution Width 14 % (10-15); White Blood Count 9.3 10^3/uL (3.5-10.8)
[2019-07-23] MEDS: guaiFENesin ER TAB 600 MG PO SCH ×2 (08:23→20:37)
[2019-07-23] MEDS: Benzonatate CAP* 100 MG PO PRN (08:23)
[2019-07-23] MEDS: Oseltamivir CAP* 75 MG CAP PO SCH ×2 (08:23→20:37)
[2019-07-23] MEDS: Nicotine PATCH 21 MG/24 HR* PATCH TRANSDERM SCH (08:24)
[2019-07-23 08:28] LABS: INR 1.34 (0.82-1.09)
[2019-07-23 08:45] LABS: ALT 18 U/L (7-52); AST 20 U/L (13-39); Albumin 3.9 g/dL (3.2-5.2); Albumin/Globulin Ratio 1.3 (1-3); Alkaline Phosphatase 45 U/L (34-104); Anion Gap 9 mmol/L (2-11); Blood Urea Nitrogen 11 mg/dL (6-24); CO2 Carbon Dioxide 25 mmol/L (22-32); Calcium 8.7 mg/dL (8.6-10.3); Chloride 103 mmol/L (101-111); EGFR African American 106.9 (>60); EGFR Non-African American 88.3 (>60); Glucose 119 mg/dL (70-100); Potassium 4.7 mmol/L (3.5-5.0); Sodium 137 mmol/L (135-145); Total Protein 6.9 g/dL (6.4-8.9)
[2019-07-23] MEDS ORDERED: methylPREDNISolone 125 MG* 2 ML VIAL IV ONE (11:26)
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
[2019-07-23] MEDS ORDERED: methylPREDNISolone SOD 40 MG* 1 ML VIAL IV SCH (12:00)
[2019-07-23] MEDS ORDERED: Albuterol/Ipratropium NEB.SOL* Albuterol 2.5 MG/Ipratropium 0.5 MG 3 ML INH SCH (12:00)
[2019-07-23] MEDS: Albuterol/Ipratropium NEB.SOL* Albuterol 2.5 MG/Ipratropium 0.5 MG 3 ML INH SCH ×2 (12:08→19:25)
[2019-07-23] MEDS: Benzonatate CAP* 100 MG PO SCH ×2 (13:48→20:37)
[2019-07-23] MEDS: Nicotine Patch Removal NOTE FOLLOW UP SCH (20:38)
[2019-07-23] MEDS ORDERED: LORazepam TAB(*) 1 MG PO ONE (22:12)
[2019-07-23] MEDS: busPIRone TAB* 15 MG PO SCH (22:27)
[2019-07-23] MEDS: DOXYcycline CAP(*) 100 MG PO SCH (22:27)
[2019-07-24] MEDS: Albuterol/Ipratropium NEB.SOL* Albuterol 2.5 MG/Ipratropium 0.5 MG 3 ML INH SCH ×3 (01:27→12:44)
[2019-07-24] MEDS: Acetaminophen TAB* 325 MG PO PRN (05:33)
[2019-07-24] MEDS ORDERED: methylPREDNISolone SOD 40 MG* 1 ML VIAL IV SCH (08:00)
[2019-07-24] MEDS: Mometasone/Formoter 200/5 MDI INH SCH (08:12)
[2019-07-24] MEDS: Benzonatate CAP* 100 MG PO SCH (08:39)
[2019-07-24] MEDS: Oseltamivir CAP* 75 MG CAP PO SCH (08:39)
[2019-07-24] MEDS: DOXYcycline CAP(*) 100 MG PO SCH (08:40)
[2019-07-24] MEDS: busPIRone TAB* 15 MG PO SCH (08:40)
[2019-07-24] MEDS: guaiFENesin ER TAB 600 MG PO SCH (08:40)
[2019-07-24] MEDS: Nicotine PATCH 21 MG/24 HR* PATCH TRANSDERM SCH (10:59)
[2019-07-24 12:32] VITALS: BP 117/70
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
== END 2019-07-24 14:15 | disposition home or self-care (01) | DRG 720 ==
LOC: ED 23:06 → MED 07-20 05:19
PROVIDERS: ADMIT Internal Medicine; ATTEND Internal Medicine
DX: A41.9 Sepsis, unspecified organism (principal); J96.01 Acute respiratory failure with hypoxia; N17.9 Acute kidney failure, unspecified; F84.0 Autistic disorder; D69.6 Thrombocytopenia, unspecified; J11.1 Influenza due to unidentified influenza virus with other respiratory manifestations; J45.909 Unspecified asthma, uncomplicated; R07.9 Chest pain, unspecified; F17.210 Nicotine dependence, cigarettes, uncomplicated; F10.10 Alcohol abuse, uncomplicated; Z83.3 Family history of diabetes mellitus; Z81.1 Family history of alcohol abuse and dependence; Z91.030 Bee allergy status
CPT/HCPCS: 36415; 71045; 80048; 80053; 80320; 81003; 83605; 83690; 83735; 84484; 85025; 85610; 86140; 87040; 87899; 93005; 94640; 99285; A9270-GY; G0480; J1885; J2405; J7512

== ENCOUNTER 2019-07-25 05:10 | Emergency (ER) | payer OTHER ==
[2019-07-25] MEDS ORDERED: NS 0.9% 1000 ML** 1,000 ML IV ONE ×2 (05:39→06:15)
[2019-07-25] MEDS ORDERED: Albuterol 2.5 MG/3 ML NEB.SOL* (0.083%) INH ONE (05:41)
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
[2019-07-25 06:13] LABS: ABS Basophils 0.1 10^3/ul (0-0.2); ABS Eosinophils 0.1 10^3/ul (0-0.6); ABS Lymphocytes 2.7 10^3/ul (1.0-4.8); ABS Monocytes 1.2 10^3/ul (0-0.8); ABS Neutrophils 5.4 10^3/ul (1.5-7.7); Eosinophil % 0.6 %; Hematocrit 41 % (42-52); Hemoglobin 14.2 g/dL (14.0-18.0); Lymphocyte % 28.3 %; Mean Corpuscular HGB Conc 35 g/dL (31-36); Mean Corpuscular Hemoglobin 31 pg (27-31); Mean Corpuscular Volume 89 fL (80-94); Mean Platelet Volume 9.7 fL (7.4-10.4); Platelet Count 190 10^3/uL (150-450); Red Blood Count 4.57 10^6 /uL (4.18-5.48); Red Cell Distribution Width 14 % (10-15); White Blood Count 9.4 10^3/uL (3.5-10.8)
[2019-07-25] MEDS ORDERED: methylPREDNISolone 125 MG* 2 ML VIAL IV ONE (06:20)
[2019-07-25] MEDS ORDERED: Acetaminophen TAB* 325 MG PO ONE (06:28)
[2019-07-25 06:31] LABS: Albumin 3.9 g/dL (3.2-5.2); Albumin/Globulin Ratio 1.4 (1-3); BUN/Creatinine Ratio 32.2 (8-20); C Reactive Protein 69.74 mg/L (<8.01); Calcium 8.7 mg/dL (8.6-10.3); EGFR African American 125.5 (>60); EGFR Non-African American 103.7 (>60); Globulin 2.7 g/dL (2-4); Potassium 4.1 mmol/L (3.5-5.0); Total Bilirubin 0.5 mg/dL (0.2-1.0); Total Protein 6.6 g/dL (6.4-8.9)
[2019-07-25 06:36] LABS: Troponin I 0.04 ng/mL (<0.03)
[2019-07-25] MEDS ORDERED: Oseltamivir CAP* 75 MG CAP PO ONE (10:05)
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
[2019-07-25 14:11] VITALS: BP 136/81
== END 2019-07-25 14:10 | disposition left against medical advice (07) ==
LOC: ED 05:10
DX: J10.1 Influenza due to other identified influenza virus with other respiratory manifestations (principal); J44.9 Chronic obstructive pulmonary disease, unspecified; F17.210 Nicotine dependence, cigarettes, uncomplicated; Z79.899 Other long term (current) drug therapy
CPT/HCPCS: 36415; 71045; 80053; 82803; 83605; 84484; 85025; 86140; 87040; 93005; 96361; 96374; 99284; A9270-GY; J2930

== ENCOUNTER 2021-08-19 11:10 | Inpatient (IN) ==
[2021-08-19 11:45] LABS: ABS Eosinophils 0.1 10^3/ul (0-0.6); ABS Lymphocytes 2.9 10^3/ul (1.0-4.8); ABS Monocytes 0.4 10^3/ul (0-0.8); ABS Neutrophils 1.9 10^3/ul (1.5-7.7); Eosinophil % 2.7 %; Hematocrit 48 % (42-52); Hemoglobin 16.3 g/dL (14.0-18.0); Lymphocyte % 53.4 %; Mean Corpuscular HGB Conc 34 g/dL (31-36); Mean Corpuscular Hemoglobin 31 pg (27-31); Mean Corpuscular Volume 90 fL (80-94); Mean Platelet Volume 8.9 fL (7.4-10.4); Nucleated Red Blood Cells % 0.1; Platelet Count 184 10^3/uL (150-450); Red Blood Count 5.27 10^6 /uL (4.18-5.48); Red Cell Distribution Width 14 % (10-15); White Blood Count 5.5 10^3/uL (3.5-10.8)
[2021-08-19 12:29] LABS: ALT 19 U/L (7-52); AST 16 U/L (13-39); Albumin 4.6 g/dL (3.2-5.2); Albumin/Globulin Ratio 1.7 (1-3); Alkaline Phosphatase 49 U/L (35-149); Anion Gap 8 mmol/L (2-11); Blood Urea Nitrogen 23 mg/dL (6-24); CO2 Carbon Dioxide 26 mmol/L (22-32); Calcium 9.4 mg/dL (8.6-10.3); Chloride 105 mmol/L (101-111); Globulin 2.7 g/dL (2-4); Glucose 128 mg/dL (70-100); Potassium 3.8 mmol/L (3.5-5.0); Sodium 139 mmol/L (135-145); TSH Ultra Thyroid Stim Horm 1.07 mcIU/mL (0.34-5.60); Total Protein 7.3 g/dL (6.4-8.9); eGFR CKD-EPI 83.8 (>60)
[2021-08-19 12:33] LABS: Acetaminophen < 15 mcg/mL; Alcohol, S < 13 mg/dL (<13); Salicylate < 2.50 mg/dL (<30)
[2021-08-19] MEDS ORDERED: Lorazepam PYXIS KEY PRN (14:47)
[2021-08-19] MEDS ORDERED: Haloperidol 5 mg/ml SDV IV/IM 5 MG/ML AMP IM ONE (14:47)
[2021-08-19] MEDS ORDERED: LORazepam 2 mg VIAL 1 ml IM ONE (14:47)
[2021-08-19] MEDS ORDERED: diPHENhydraMINE IV 50 MG/ML 1 ml VIAL (BENADRYL) IM ONE ×2 (14:47→14:51)
[2021-08-19] MEDS ORDERED: Nicotine PATCH 21 MG/24 HR PATCH TRANSDERM ONE (16:06)
[2021-08-19] MEDS ORDERED: Nicotine GUM 4MG FRUIT FLAVOR PO PRN (16:42)
[2021-08-19] MEDS ORDERED: Al Hydrox/Mg Hydrox/Simet LIQ 30 ML UDC PO PRN (16:42)
[2021-08-19 16:58] LABS: Rapid COVID-19 Molecular Undetected (Undetected)
[2021-08-19 21:38] VITALS: BP 115/72
[2021-08-20] MEDS: Nicotine PATCH 21 MG/24 HR PATCH TRANSDERM SCH ×3 (11:45→14:23)
== END 2021-08-20 16:43 | disposition home or self-care (01) | DRG 755 ==
LOC: ED 11:10 → EDHOLD 16:42 → BSU 20:02
PROVIDERS: ADMIT Psychiatry & Neurology Psychiatry; ATTEND Psychiatry & Neurology Psychiatry